=== PATIENT | female | born 1950 ===

== ENCOUNTER 2016-07-21 13:30 | Inpatient (IN) | payer MEDICAID, MEDICARE, OTHER ==
[2016-07-21] MEDS ORDERED: Nitroglycerin 2% 1GM UD TOP STA (14:07)
[2016-07-21] MEDS ORDERED: Nitroglycerin 2% 1GM UD ONE (14:26)
--- NOTE | 2016-07-21 14:56 | CT ---
PROCEDURE: CT HEAD WITHOUT CONTRAST. HISTORY: headache COMPARISON: None available. TECHNIQUE: Axial computed tomography images were obtained through the head/brain without intravenous contrast. Radiation dose: Total exam DLP = 876.44 mGy-cm. FINDINGS: HEMORRHAGE: No intracranial hemorrhage. BRAIN: No intracranial mass. Rounded area of low attenuation in the left frontal white matter which may be artifact, or may represent focal microvascular ischemic change. Possible focal nonspecific gliosis Cannot rule out subacute white matter infarct. No evidence of acute infarct. VENTRICLES: Unremarkable. No hydrocephalus. CALVARIUM: Unremarkable. PARANASAL SINUSES: Unremarkable as visualized. No significant inflammatory changes. MASTOID AIR CELLS: Unremarkable as visualized. No inflammatory changes. OTHER FINDINGS: None. IMPRESSION: No intracranial hemorrhage. Rounded area of low attenuation in the left frontal white matter common nonspecific. See above differential diagnosis. Not concerning for acute infarct or neoplasm. Otherwise unremarkable.
[2016-07-21 15:01] LABS: BASO # 0.1 K/uL (0.0-0.2); BASO % 0.5 % (0.0-2.0); EOS # 0.3 K/uL (0.0-0.7); EOS % 2.1 % (0.0-4.0); HEMATOCRIT 37.5 % (34.0-47.0); LYMPH # 2.1 K/uL (1.0-4.3); LYMPH % 17.2 % (20.0-40.0); MEAN CELL VOLUME 78.6 fl (81.0-99.0); MEAN CORPUSCULAR HEMOGLOBIN 26.2 pg (27.0-31.0); MEAN CORPUSCULAR HGB CONC 33.4 g/dL (33.0-37.0); MEAN PLATELET VOLUME 8.5 fl (7.2-11.7); MONO # 1.4 K/uL (0.0-0.8); MONO % 11.4 % (0.0-10.0); NEUT # 8.2 K/uL (1.8-7.0); NEUT % 68.8 % (50.0-75.0); WHITE BLOOD COUNT 11.9 K/uL (4.8-10.8)
--- NOTE | 2016-07-21 15:14 | RAD ---
HISTORY: pain COMPARISON: No prior. TECHNIQUE: Chest PA and lateral FINDINGS: LUNGS: No infiltrate. Examination limited by failure to include left costophrenic angle on the frontal view. PLEURA: No significant pleural effusion identified. No pneumothorax apparent. CARDIOVASCULAR: Normal. OSSEOUS STRUCTURES: No significant abnormalities. VISUALIZED UPPER ABDOMEN: Normal. OTHER FINDINGS: None. IMPRESSION: Normal limited examination.
[2016-07-21 15:19] LABS: PARTIAL THROMBOPLASTIN TIME 28.7 SECONDS (23.3-32.5)
[2016-07-21 15:21] LABS: ALB/GLOB RATIO 0.9 (1.0-2.1); ALKALINE PHOSPHATASE 108 U/L (38-126); ALT/SGPT 24 U/L (9-52); AST/SGOT 18 U/L (14-36); BILIRUBIN,TOTAL 0.7 mg/dl (0.2-1.3); BLOOD UREA NITROGEN 13 mg/dl (7-17); CALCIUM 9.2 mg/dL (8.4-10.2); CARBON DIOXIDE 26 mmol/L (22-30); CHLORIDE 99 mmol/L (98-107); GFR AFRICAN-AMERICAN > 60; GLUCOSE,RANDOM 181 mg/dL (65-105); LIPASE 40 U/L (23-300); MAGNESIUM 1.8 MG/DL (1.6-2.3); POTASSIUM 3.9 MMOL/L (3.6-5.0); SODIUM 135 mmol/l (132-148); TOTAL PROTEIN 8.8 G/DL (6.3-8.2)
--- NOTE | 2016-07-21 15:46 | ED PDOC ---
HPI: Chest Pain Time Seen by Provider: 07/21/16 13:58 Chief Complaint (Nursing): Chest Pain Chief Complaint (Provider): chest pain and headache History Per: Patient, Family (daughter at bedside ) Additional Complaint(s): patient with DM, CVA presents for evaluation of 3 days of chest pain described as sharp pulsating pain radiating to the left upper arm, left and mid chest no alleviating or exacerbating factors. further notes headaches, pulsating throbbing in the left frontal region. (-) dizziness, change in vision, motor weakness, trouble talking or swallowing. was seen 2 weeks ago in another hospital for strep- treated with injection- no fevers, no throat pain, no rash daughter notes not compliant with medications in [place], however she was restarted on metformin during that hospital visit and has been taking it. hx of stroke,mild left weakness about 5 years all resolved- no deficits NIHSS Stroke Scale - Date/Time Evaluation Performed Date Performed: 07/21/16 Time Performed: 13:58 When Was NIHSS Performed: Baseline - How Severe is the Stroke Level of Consciousness: 0=Alert LOC to Questions: 0=Both comments correct LOC to commands: 0=Obeys both correctly Best Gaze: 0=Normal Visual: 0=No visual loss Facial: 0=Normal Motor Arm - Left: 0=No drift Motor Arm - Right: 0=No drift Motor Leg - Left: 0=No drift Motor Leg - Right: 0=No drift Limb Ataxia: 0=Absent Sensory: 0=Normal Best Language: 0=No aphasia Extinction & Inattention (Neglect): 0=Normal, no object Past Medical History Reviewed: Historical Data, Nursing Documentation, Vital Signs Vital Signs: Last Vital Signs Temp 98.9 F 07/22/16 09:19 Pulse 83 07/22/16 09:19 Resp 20 07/22/16 09:19 BP 148/70 07/22/16 09:19 Pulse Ox 95 07/22/16 09:19 - Medical History PMH: CVA (about 5 years ago, left side weakness- resolved, no deficits ), Diabetes (non insulin see HPI) Other PMH: cardiomegaly - Family History Family History: States: [place] (father ) - Living Arrangements Living Arrangements: With Family (visiting from [place]) - Social History Current smoker - smoking cessation education provided: No Alcohol: Occasional Drugs: Denies - Allergies Allergies/Adverse Reactions: Allergies Allergy/AdvReac Type Severity Reaction Status Date / Time No Known Allergies Allergy Verified 07/21/16 13:53 NOHEMI Risk Score for UA/NSTEMI - NOHEMI Risk Score Age > 64: YES 3 or more CAD Risk Factors: YES Known CAD (Stenosis greater than 50%): NO Aspirin use in past 7 days: NO Severe Angina: NO EKG ST changes greater than 0.5mm: NO Positive Cardiac Marker: NO NOHEMI Score: 2 Risk %: 8% Wells Criteria for PE - Wells Criteria for Pulmonary Embolism Clinical Signs and Symptoms of DVT: No P.E is #1 Diagnosis, or Equally Likely: No Heart Rate >100: No Immobilization at least 3 days;Surgery previous 4 weeks: No Previous, objectively diagnosed PE or DVT: No Hemoptysis: No Malignancy w/treatment within 6 months, or palliative: No Total Score: 0 Review of Systems ROS Statement: Except As Marked, All Systems Reviewed And Found Negative Constitutional: Negative for: Fever Cardiovascular: Positive for: Chest Pain. Negative for: Palpitations Respiratory: Positive for: Shortness of Breath. Negative for: Cough Gastrointestinal: Negative for: Nausea, Vomiting, Abdominal Pain Musculoskeletal: Negative for: Neck Pain Skin: Negative for: Rash Neurological: Positive for: Headache. Negative for: Seizures, Dizziness Physical Exam - Reviewed Nursing Documentation Reviewed: Yes Vital Signs Reviewed: Yes - Physical Exam Appears: Positive for: Well (obese ), No Acute Distress Head Exam: Positive for: ATRAUMATIC (non tender temporal areas with no swelling or pulsating blood vessles ), NORMAL INSPECTION Skin: Positive for: Normal Color, Warm, Dry Eye Exam: Positive for: Normal appearance ENT: Positive for: Normal ENT Inspection Neck: Positive for: Normal, Painless ROM Cardiovascular/Chest: Positive for: Regular Rate, Rhythm Respiratory: Positive for: Normal Breath Sounds Pulses-Dorsalis Pedis (L): 2+ Pulses-Dorsalis Pedis (R): 2+ Pulses-Radial (L): 2+ Pulses-Radial (R): 2+ Gastrointestinal/Abdominal: Positive for: Normal Exam, Soft. Negative for: Tenderness Back: Positive for: Normal Inspection Extremity: Positive for: Normal ROM. Negative for: Tenderness Lymphatic: Positive for: Normal Exam Neurologic/Psych: Positive for: Alert, tutor coordinator II-XII (normal intact ), Oriented, Cerebellar Tests (intact ), Gait (normal ). Negative for: Motor/Sensory Deficits, Aphasia, Facial Droop - Laboratory Results Result Diagrams: 07/22/16 06:57 07/22/16 06:57 - ECG ECG Rhythm: Positive for: Normal QRS, Normal ST Segment, Sinus Rhythm (94). Negative for: ST/T Changes O2 Sat by Pulse Oximetry: 100 Pulse Ox Interpretation: Normal - Radiology X-Ray: Read By Radiologist X-Ray Interpretation: No Acute Disease (limited left costophrenic angle) Medical Decision Making Medical Decision Makin65 y/o female uncontrolled DM, hx of CVA with headache, chest pain, rule out ACS - ct head - labs - EKG - aspirin, nitro CT head FINDINGS: HEMORRHAGE:No intracranial hemorrhage. BRAIN:No intracranial mass. Rounded area of low attenuation in the left frontal white matter which may be artifact, or may represent focal microvascular ischemic change. Possible focal nonspecific gliosis Cannot rule out subacute white matter infarct. No evidence of acute infarct. VENTRICLES:Unremarkable. No hydrocephalus. CALVARIUM:Unremarkable. PARANASAL SINUSES:Unremarkable as visualized. No significant inflammatory changes. MASTOID AIR CELLS:Unremarkable as visualized. No inflammatory changes. OTHER FINDINGS:None. IMPRESSION: No intracranial hemorrhage. Rounded area of low attenuation in the left frontal white matter common nonspecific. See above differential diagnosis. Not concerning for acute infarct or neoplasm. Otherwise unremarkable. CT as above. MRI ordered for further evaluation. daughter notes left sided issues during her CVA 5 years ago. today left sided headache. labs reviewed (+) d-dimer CTA ordered. trop and BNP negative glucose 181 ESR pending labs with no acute finding after nitro and ASA patient states no further chest pain CTA pending. [facility] placed to [facility] for further inpatient evaluation. requests: Dr. Quesada for cardio and Dr. Candelaria for neuro repeat examination reveals patient appears well. NAD, neuro exam with no focal weakness or deficits. discussed case with Dr. Quesada and Dr. Candelaria, agree with treatment plan. will follow. CTA IMPRESSION: Bilateral small pulmonary emboli are noted. The examination is technically limited. No pulmonary infiltrate/ pleural effusion. Cardiomegaly with small pericardial effusion. No evidence of right ventricular strain. Hepatosplenomegaly. Incidental right adrenal myelo lipoma. Case discussed with Dr. Garcia and Dr. Quesada made aware of finding of PE. Lovenox ordered. MRI:IMPRESSION: No evidence of acute infarct or acute pathology in the brain. Gqqr-dl-wfeinaef atrophy and mild chronic microvascular white matter ischemic disease. Widening of the sella turcica and empty sella noted. Mild sinuses mucosal thickening. Patient is stable, no headache and no chest pain at this time. heart: rrr, no mgr. lungs CTA bilateral, vitals reviewed SaO2 98%, no focal weakness or deficits. discussed with patient, daughter, son all finding in malay via video hat liner- louis [phone] all questions answered. Disposition - Clinical Impression Clinical Impression: Chest pain, Headache, Pulmonary emboli, Pericardial effusion - Patient ED Disposition Is Patient to be Admitted: Yes Counseled Patient/Family Regarding: Studies Performed, Diagnosis - Disposition Disposition Time: 18:13 Condition: STABLE - Pt Status Changed To: Hospital Disposition Of: Inpatient - Admit Certification Admit to Inpatient:: After my assessment, the patient will require hospitalization for at least two midnights. This is because of the severity of symptoms shown, intensity of services needed, and/or the medical risk in this patient being treated as an outpatient. - POA Present On Arrival: Poor Glycemic Control, Deep Vein Thrombosis / PE
[2016-07-21] MEDS ORDERED: Iodixanol 320 MG/ML 100 ML BOTTLE IV ONE (16:35)
[2016-07-21] MEDS ORDERED: Sodium Chloride 0.9% 50 ML IV ONE (16:35)
[2016-07-21 17:14] LABS: RBC URINE 2 /hpf (0-3); URINE BACTERIA MANY (<OCC); URINE BILIRUBIN NEGATIVE (NEGATIVE); URINE BLOOD NEGATIVE (NEGATIVE); URINE COLOR YELLOW (YELLOW); URINE GLUCOSE (UA) NEG (Normal); URINE KETONE NEGATIVE (NEGATIVE); URINE LEUKOCYTE ESTERASE NEG Leu/uL (Negative); URINE PROTEIN 30 mg/dL (NEGATIVE); URINE UROBILINOGEN 0.2-1.0 mg/dL (0.2-1.0); WBC URINE 1 /hpf (0-5)
--- NOTE | 2016-07-21 17:59 | CT ---
PROCEDURE: CT Chest with contrast (Pulmonary Angiogram) HISTORY: pain COMPARISON: None available. TECHNIQUE: Axial computed tomography images were obtained of the chest in the pulmonary arterial phase of enhancement. Coronal and sagittal reformatted images were created and reviewed. Intravenous contrast dose: 100 mL Visipaque 3 Radiation dose: Total exam DLP = 403.86 mGy-cm. FINDINGS: PULMONARY ARTERIES: Unremarkable. No pulmonary embolism. Evaluation for pulmonary embolism is somewhat limited due to technical limitation of the timing relative to contrast injection and due to patient body habitus. There is no large central pulmonary embolus identified. Is a small filling defect identified within a right upper lobe segmental pulmonary artery branch. There is a filling defect seen within a lingular segmental pulmonary artery branch. These are consistent with pulmonary emboli. AORTA: No acute findings. No thoracic aortic aneurysm. LUNGS: Unremarkable. No nodule, mass or pulmonary consolidation. PLEURAL SPACES: Unremarkable. No effusion or pneuomothorax. HEART: The heart is enlarged. There is a small pericardial effusion present. No evidence of right ventricular strain. Incidental note is made of an aberrant right subclavian artery, a developmental variant. LYMPH NODES: No lymphadenopathy. BONES, CHEST WALL: Unremarkable. No fracture or destructive lesion OTHER FINDINGS: Splenomegaly. Probable hepatomegaly although the liver is only partially included in this examination. Incidentally noted 2.6 cm right adrenal myelolipoma. IMPRESSION: Bilateral small pulmonary emboli are noted. The examination is technically limited. No pulmonary infiltrate/ pleural effusion. Cardiomegaly with small pericardial effusion. No evidence of right ventricular strain. Hepatosplenomegaly. Incidental right adrenal myelo lipoma. These findings were discussed by telephone with WILIAN Palacios at 5:57 p.m. on 07/21/2016.
[2016-07-21] MEDS ORDERED: Enoxaparin 80 mg Syringe SC STA (18:08)
--- NOTE | 2016-07-21 18:27 | MRI ---
PROCEDURE: MRI BRAIN WITHOUT CONTRAST HISTORY: headache COMPARISON: None. TECHNIQUE: Multiplanar, multisequence MR images of the brain were obtained without intravenous contrast enhancement. FINDINGS: HEMORRHAGE: None DWI: No evidence of an acute or early subacute infarction. BRAIN PARENCHYMA: No mass effect or edema. Nyrt-cp-ovskmavp atrophy noted. There are scattered foci of hyperintense T2 and FLAIR signal seen in the white matter suggestive but nonspecific for chronic microvascular ischemic disease. VENTRICLES: Unremarkable. No hydrocephalus. CRANIUM: Unremarkable. ORBITS: Grossly unremarkable. PARANASAL SINUSES/MASTOIDS: Mild sinuses mucosal thickening seen. VASCULAR SYSTEM: Skull base flow voids intact. OTHER FINDINGS: None. IMPRESSION: No evidence of acute infarct or acute pathology in the brain. Rnpb-wc-atyxixyw atrophy and mild chronic microvascular white matter ischemic disease. Widening of the sella turcica and empty sella noted. Mild sinuses mucosal thickening.
[2016-07-22] MEDS ORDERED: Pneumococcal 23-Valent Vaccine IM ONE (06:00)
[2016-07-22] MEDS ORDERED: Influenza Vaccine(5yr & older) 0.5 ML/45 MCG IM ONE (06:00)
[2016-07-22 07:22] LABS: HEMATOCRIT 36.6 % (34.0-47.0); MEAN CELL VOLUME 78.6 fl (81.0-99.0); MEAN CORPUSCULAR HEMOGLOBIN 26.6 pg (27.0-31.0); MEAN CORPUSCULAR HGB CONC 33.8 g/dL (33.0-37.0); RED CELL DISTRIBUTION WIDTH 14.2 % (11.5-14.5); WHITE BLOOD COUNT 12.4 K/uL (4.8-10.8)
[2016-07-22 07:43] LABS: BLOOD UREA NITROGEN 13 mg/dl (7-17); CALCIUM 8.9 mg/dL (8.4-10.2); CARBON DIOXIDE 27 mmol/L (22-30); CHLORIDE 100 mmol/L (98-107); CHOLESTEROL 156 mg/dL (0-199); GFR AFRICAN-AMERICAN > 60; GLUCOSE,RANDOM 175 mg/dL (65-105); SODIUM 135 mmol/l (132-148)
--- NOTE | 2016-07-22 08:06 | CP.PCM.CON ---
History of Present Illness - History of Present Illness History of Present Illness: atient with DM, CVA presents for evaluation of 3 days of chest pain described as sharp pulsating pain radiating to the left upper arm, left and mid chest no alleviating or exacerbating factors. further notes headaches, pulsating throbbing in the left frontal region. (-) dizziness, change in vision, motor weakness, trouble talking or swallowing. was seen 2 weeks ago in another hospital for strep- treated with injection- no fevers, no throat pain, no rash daughter notes not compliant with medications in [place], however she was restarted on metformin during that hospital visit and has been taking it. hx of stroke,mild left weakness about 5 years all resolved- no deficits Troponin: neg x 3 Pt denies any pains at present EKG: NSR Echo: good LV function CT Chest: Bilateral small pulmonary emboli Past Patient History - Past Medical History & Family History Past Medical History?: Yes - Past Social History Smoking Status: Never Smoked - CARDIAC Hx Cardiac Disorders: No - PULMONARY Hx Respiratory Disorders: Yes Hx Asthma: Yes - NEUROLOGICAL Hx Neurological Disorder: Yes HX Cerebrovascular Accident: Yes (CVA occurred 5 yrs ago; no deficits noted presently) - HEENT Hx HEENT Problems: No - RENAL Hx Chronic Kidney Disease: No - ENDOCRINE/METABOLIC Hx Endocrine Disorders: Yes Hx Diabetes Mellitus Type 2: Yes - HEMATOLOGICAL/ONCOLOGICAL Hx Blood Disorders: No - INTEGUMENTARY Hx Dermatological Problems: No - MUSCULOSKELETAL/RHEUMATOLOGICAL Hx Musculoskeletal Disorders: No Hx Falls: No - GASTROINTESTINAL Hx Gastrointestinal Disorders: Yes Hx Gall Bladder Disease: Yes (gall bladder sx - removed 2013) - GENITOURINARY/GYNECOLOGICAL Hx Genitourinary Disorders: No - PSYCHIATRIC Hx Psychophysiologic Disorder: No Hx Substance Use: No - SURGICAL HISTORY Hx Surgeries: Yes Hx Section: Yes (x1) Hx Cholecystectomy: Yes (3 years ago) Other/Comment: Gall bladder sx in 2013 - ANESTHESIA Hx Anesthesia: Yes Hx Anesthesia Reactions: No Meds Allergies/Adverse Reactions: Allergies Allergy/AdvReac Type Severity Reaction Status Date / Time No Known Allergies Allergy Verified 07/21/16 13:53 - Medications Medications: Current Medications Acetaminophen (Tylenol 325mg Tab) 650 mg PO Q6 PRN PRN Reason: Pain, moderate (4-7) Aspirin (Ecotrin) 81 mg PO DAILY [facility] Enoxaparin Sodium (Lovenox) 40 mg SC DAILY [facility] PRN Reason: Protocol Insulin Human Regular (Humulin R) 0 units SC ACHS [facility] PRN Reason: Protocol Physical Exam - Respiratory Exam Respiratory Exam: NORMAL BREATHING PATTERN - Cardiovascular Exam Cardiovascular Exam: REGULAR RHYTHM Results - Vital Signs Recent Vital Signs: Last Vital Signs Temp 99.3 F 07/22/16 05:18 Pulse 90 07/22/16 05:18 Resp 18 07/22/16 05:18 BP 147/69 07/22/16 05:18 Pulse Ox 96 07/22/16 05:18 - Labs Result Diagrams: 07/22/16 06:57 07/22/16 06:57 Labs: Laboratory Results - last 24 hr 07/21/16 07/22/16 07/22/16 23:18 05:35 06:54 WBC RBC Hgb Hct MCV MCH MCHC RDW Plt Count POC Glucose (mg/dL) 162 H Troponin I 0.0150 0.0170 07/22/16 06:57 WBC 12.4 H RBC 4.65 Hgb 12.4 Hct 36.6 MCV 78.6 L MCH 26.6 L MCHC 33.8 RDW 14.2 Plt Count 346 POC Glucose (mg/dL) Troponin I Assessment & Plan (1) Chest pain Assessment and Plan: Most likely 2* to Pulmonay Emboli Status: Acute (2) Pulmonary emboli Status: Acute
[2016-07-22 08:14] LABS: THYROID STIMULATING HORMONE 3.63 mIU/ML (0.46-4.68)
[2016-07-22] MEDS: Insulin Regular 100 units/ml SC SCH ×4 (09:21→22:56)
[2016-07-22] MEDS: Enoxaparin 40 mg Syringe SC SCH (09:23)
--- NOTE | 2016-07-22 10:04 | HP ---
CHIEF COMPLAINT: Chest pain and headache. HISTORY OF PRESENT ILLNESS: This is a 65-year-old female, known case of diabetes, history of CVA in the past with almost total recovery who was having chest pain, so the patient was brought to the [facility] Room and during workup, the patient was found to have pulmonary embolism, so patient was admitt ed for further management. REVIEW OF SYSTEMS: Positive for chest pain. Review of systems otherwise is negative for headache, d izziness, syncope, loss of consciousness, chest pain other than the one described in history of prese nt illness, shortness of breath, nausea, vomiting, diarrhea, constipation, any new joint or extremity pain. Review of systems of all other organ systems is unremarkable. PAST MEDICAL HISTORY: Significant for diabetes and history of stroke in the past. PAST SURGICAL HISTORY: Unremarkable. PERSONAL HISTORY: The patient is currently a nonsmoker, nondrinker, no substance abuse. MEDICATIONS: As per reconciliation sheet, which is reviewed in order. ALLERGIES: The patient is not allergic to any medication. FAMILY HISTORY: Noncontributory. PHYSICAL EXAMINATION: GENERAL: Well-built, well-nourished, overweight female in no acute distress. VITAL SIGNS: Temperature 99.3, pulse 90, respirations 18, blood pressure 147/69. HEENT: Pupils reacting to light. No nystagmus. Normocephalic, atraumatic skull. NECK: No JVD, no thyromegaly, no lymphadenopathy. HEART: S1, S2 normal, regular. No significant murmur, gallop or rub is heard. LUNGS: Shows good bilateral air exchange. No rales or rhonchi. ABDOMEN: Soft, nontender, no organomegaly, no fluid. Bowel sounds are plus. EXTERNAL GENITALIA AND RECTAL: Deferred on this patient. EXTREMITIES: No edema, no calf swelling, no tenderness, no acute ischemia. CENTRAL NERVOUS SYSTEM: Essentially unchanged and there is no sign of any acute gross focal motor or sensory neurological deficit. DIAGNOSTIC DATA: Available diagnostic data reviewed. Telemetry monitoring does not reveal significa nt arrhythmia. WBC 12.1, hemoglobin 12.1, hematocrit 36.6, platelets 246. Accu-Cheks are 162, hemog lobin A1c is 10.____. Troponin: 2 sets are negative. Urinalysis is clear. Chest x-ray is clear. CAT scan head shows minimal abnormality. MRI of the brain also is consistent with microvascular dise ase. CAT scan of the chest shows bilateral pulmonary embolism. ADMITTING IMPRESSION: Bilateral pulmonary embolism, uncontrolled diabetes with hyperglycemia type 2, ____ by history, obesity. PLAN: As ordered. Case and plan discussed with patient. Rafael Garcia MD cc: [id number] TT: 07/22/2016 10:02:55 jn
--- NOTE | 2016-07-22 16:22 | US ---
PROCEDURE: Duplex ultrasound of the carotid and vertebral arteries. HISTORY: STENOSIS COMPARISON: None available. TECHNIQUE: Grayscale and duplex Doppler evaluation of the cervical carotid and vertebral arteries were performed. The common carotid, carotid bifurcations and cervical ICA and proximal ECA were evaluated. The vertebral arteries were evaluated for gross patency and direction. FINDINGS: RIGHT CAROTID ARTERIES: Common Carotid Artery: Minimal intimal thickening. Maximal flow velocity of 81 cm/s. Carotid Bifurcation: Unremarkable Internal Carotid Artery:Minor plaque Maximal flow velocity of 104 cm/s. External Carotid Artery (proximal branches): Normal. Maximal flow velocity of 112 cm/s. ICA/CCA Ratio: Within normal limits LEFT CAROTID ARTERIES: Common Carotid Artery: Minor intimal thickening. Maximal flow velocity of 71 cm/s. Carotid Bifurcation: Unremarkable Internal Carotid Artery:Minor plaque Maximal flow velocity of 64 cm/s. External Carotid Artery (proximal branches): Normal. Maximal flow velocity of 70 cm/s. ICA/CCA Ratio: Within normal limits VERTEBRAL ARTERIES: Right Vertebral Artery: Patent. Antegrade flow. Left Vertebral Artery: Patent. Antegrade flow. OTHER FINDINGS: None. IMPRESSION: No peak systolic velocity elevation to suggest carotid bifurcation stenosis.
[2016-07-22 17:22] LABS: FOLATE 16.2 ng/mL
--- NOTE | 2016-07-22 21:03 | CON ---
DATE: 07/22/2016 ATTENDING PHYSICIAN: Rafael Garcia MD LOCATION: The patient's room 406, bed 1. REASON FOR THE CONSULTATION: Headache. CHIEF COMPLAINT: The patient was brought into [facility] with a history of pulsating and radicular pain to her left arm and also she has a left frontal headache. From a neurological point of view, I was called in to evaluate her for further management. HISTORY OF PRESENT ILLNESS: The patient is a 65-year-old moderately obese, right-handed female presenting with left frontal pain associating with some left arm pain also. This pain is not associating with nausea or vomiting. This is 24-hours after her headache is not existing. No dizziness, no visual or bulbar dysfunction. Right arm pain is also somewhat decreased at present. No similar episodes happened in the past. PAST MEDICAL HISTORY: Had a CVA 5 years ago with left-sided weakness, resolved without any deficit. History of diabetes mellitus. History of cardiomegaly. PERSONAL HISTORY: Denies smoking and alcohol. ALLERGIC REACTION: No known allergies. REVIEW OF SYSTEMS: As per H and P. MEDICATIONS: Ecotrin, insulin, Lovenox and Tylenol for her headache. PHYSICAL EXAMINATION: VITAL SIGNS: Blood pressure 165/88, mean arterial pressure 113, respiratory rate 16, temperature afebrile. NECK: Supple. No carotid bruit. HEART: Sounds are regular. CHEST: Fair air entry. EXTREMITIES: No edema in legs. NEUROLOGIC EXAMINATION: MENTAL STATUS EXAMINATION: The patient is awake, alert, oriented to person, place, and time. The patient is communicable only in Faroese. She follows 2-3 step complex commands. No right and left confusion. CRANIAL NERVE EXAMINATION: Visual march intact, pupil reactive to light. Extraocular movements are normal. No nystagmus, no facial sensory deficit, no facial asymmetry. Hearing is normal. Tongue is midline. Good gag. Examination of the temporal area: No Tinel's sign positive on tapping the temporal artery. No beaded appearance of the temporal artery. No jaw tenderness. MOTOR: On outstretched hand with eyes closed, no drift noted. Power is symmetric on either side. DEEP TENDON REFLEXES: Biceps, brachioradialis, triceps are absent, both knees are absent, both ankles are absent, both ankles are absent, left plantars are upgoing and right plantars are downgoing. SENSORY: Distal sensory motor neuropathy. COORDINATION: Nvwemw-jmgc-bdmluf test is intact. GAIT: Is deferred at this time. CONCLUSION: Upon reviewing her history and neurological examination, the patient is presenting with a pulsatile headache over her left frontal region, which was resolved at present. The current examination does not show any long tract sign except the diabetic retinal neuropathy. Considering her risk of stroke and possible pulmonary embolism, the patient needs to be worked up for hypercoagulable stage. BLOOD WORKUP: WBC 12.4, hemoglobin 12.4, hematocrit 36.6, platelet 346. ESR 38. GFR more than 60. Sodium 135, potassium 4.0, chloride 100, bicarbonate 27. CRP of 15. Hemoglobin A1c 10.3. BUN 13, creatinine 0.4. TSH 3.6. Vitamin B12 117. Cholesterol 123, HDL 86. Urinalysis with many bacteria. RPR nonreactive. MRI of the brain showed periventricular ischemic changes, which are consistent with small vessel disease, some showed black holes consistent with a chronic vascular infarct. Carotid Doppler, no significant stenosis. RECOMMENDATIONS: 1. B12 supplement. 2. Continue aspirin for stroke prophylaxis. 3. Hypercoagulable stage. Blood workup as recommended in the order. Continue anticoagulation for her PE. The patient will be followed closely while she is in the hospital. Jose Carlos Candelaria MD cc: [id number] TT: 07/22/2016 21:02:05 Confirmation # [id number] Dictation # [id number] damon REYEZ
[2016-07-23] MEDS: Insulin Regular 100 units/ml SC SCH ×4 (06:50→22:42)
--- NOTE | 2016-07-23 07:30 | CARD ---
APPROVED REPORT EXAM: Two-dimensional and M-mode echocardiogram with Doppler and color Doppler. Other Information Quality : GoodRhythm : NSR INDICATION Chest Pain 2D DIMENSIONS IVSd1.37 (0.7-1.1cm)LVDd4.40 (3.9-5.9cm) LVOT Diameter1.93 (1.8-2.4cm)PWd1.30 (0.7-1.1cm) IVSs2.02 (0.8-1.2cm)LVDs2.75 (2.5-4.0cm) FS (%) 37.5 %PWs1.48 (0.8-1.2cm) M-Mode DIMENSIONS Left Atrium (MM)2.94 (2.5-4.0cm)IVSd1.26 (0.7-1.1cm) Aortic Root3.18 (2.2-3.7cm)LVDd5.46 (4.0-5.6cm) Aortic Cusp Exc.1.92 (1.5-2.0cm)PWd1.36 (0.7-1.1cm) IVSs2.08 cmFS (%) 44 % LVDs3.04 (2.0-3.8cm)PWs1.79 cm Mitral Valve MV E Kzenmlzk85.3cm/sMV DECEL [id number] A Lrslydae754.2cm/s MV TVE42tbF/A ratio0.7MVA (PHT)5.02cm2 TDI Medial E' Peak V6.36cm/sE/Lateral E'0.0E/Medial E'15.5 LEFT VENTRICLE The left ventricle is normal size. There is moderate concentric left ventricular hypertrophy. The left ventricular function is normal. The left ventricular ejection fraction is 60-65% There is normal LV segmental wall motion. Transmitral Doppler flow pattern is Grade I-abnormal relaxation pattern. No left ventricle thrombus noted on this study. There is no ventricular septal defect visualized. There is no left ventricular aneurysm. There is no mass noted in the left ventricle. RIGHT VENTRICLE The right ventricle is normal size. There is normal right ventricular wall thickness. The right ventricular systolic function is normal. ATRIA The left atrium size is normal. The right atrium size is normal. The interatrial septum is intact with no evidence for an atrial septal defect. AORTIC VALVE The aortic valve is mildly to moderately sclerotic. No aortic regurgitation is present. There is no aortic valvular stenosis. There is no aortic valvular vegetation. There is no aortic valvular vegetation. There is no aortic valvular vegetation. There is no aortic valvular vegetation. MITRAL VALVE The mitral valve is normal in structure and function. Mitral annular calcification is moderate to severe. There is no evidence of mitral valve prolapse. There is no mitral valve stenosis. There is no mitral valve regurgitation noted. TRICUSPID VALVE The tricuspid valve is normal in structure and function. There is no tricuspid valve regurgitation noted. There is no tricuspid valve prolapse or vegetation. There is no tricuspid valve stenosis. PULMONIC VALVE The pulmonary valve is normal in structure and function. There is no pulmonic valvular regurgitation. There is no pulmonic valvular stenosis. GREAT VESSELS The aortic root is normal in size. The ascending aorta is normal in size. The IVC is normal in size and collapses >50% with inspiration. PERICARDIAL EFFUSION The pericardium appears normal. There is no pleural effusion. <Conclusion> Normal LV Systolic Function Concentric LVH Aortic Valve Sclerosis Mitral Annular Calcification
[2016-07-23 08:26] LABS: HOMOCYSTEINE 10.2 umol/L (<10.4)
[2016-07-23] MEDS: Enoxaparin 40 mg Syringe SC SCH (09:17)
--- NOTE | 2016-07-23 09:35 | PN ---
DATE: 07/23/2016 The patient is seen and examined. Interim events noted. Consults noted and appreciated. Cardiology consult, neurology consult, and intervention noted and appreciated. The patient remains in progress [facility] care unit on telemetry monitoring. The patient feels better. No chest pain, no shortness of hubert ath. PHYSICAL EXAMINATION: GENERAL: The patient is in no acute distress. VITAL SIGNS: Stable. HEART: S1, S2 normal, regular. LUNGS: Good bilateral air entry. ABDOMEN: Soft, nontender. EXTREMITIES: No edema, no calf swelling, no tenderness, no acute ischemia. CENTRAL NERVOUS SYSTEM: Essentially unchanged. DIAGNOSTIC DATA: Available diagnostic data reviewed. Telemetry monitoring does not reveal significa nt arrhythmias. Overall, the patient's general condition is slowly improving. PLAN: As ordered. Rafael Garcia MD cc: [id number] TT: 07/23/2016 09:34:58 Confirmation # [id number] Dictation # [id number] arcenio
[2016-07-23 10:20] LABS: HEMATOCRIT 36.2 % (34.0-47.0); MEAN CORPUSCULAR HEMOGLOBIN 26.5 pg (27.0-31.0); MEAN CORPUSCULAR HGB CONC 33.5 g/dL (33.0-37.0); RED CELL DISTRIBUTION WIDTH 13.8 % (11.5-14.5); WHITE BLOOD COUNT 10.9 K/uL (4.8-10.8)
[2016-07-23 11:14] LABS: ALKALINE PHOSPHATASE 100 U/L (38-126); ALT/SGPT 23 U/L (9-52); AST/SGOT 18 U/L (14-36); BILIRUBIN,TOTAL 0.6 mg/dl (0.2-1.3); BLOOD UREA NITROGEN 12 mg/dl (7-17); CALCIUM 9.1 mg/dL (8.4-10.2); CARBON DIOXIDE 26 mmol/L (22-30); CHLORIDE 100 mmol/L (98-107); GFR AFRICAN-AMERICAN > 60; GLUCOSE,RANDOM 206 mg/dL (65-105); POTASSIUM 3.6 MMOL/L (3.6-5.0); SODIUM 136 mmol/l (132-148)
[2016-07-23 11:16] LABS: ALB/GLOB RATIO 0.9 (1.0-2.1)
--- NOTE | 2016-07-23 19:07 | PN ---
DATE: 07/23/2016 NEUROLOGICAL PROBLEM: Headache with no lateralizing sign. VITAL SIGNS: Blood pressure 173/90, mean arterial pressure of 118, respiratory rate 16, temperature 98.6 with a pulse rate of 101. The patient is seen with family members. She is awake, alert, oriented to person, place, and time. Headache is not present since my exam yesterday. The patient is asymptomatic at present. From a neurological point of view examination is unchanged compared with my previous exam. The patie nt is on Lovenox for PE. The patient was given B12 supplements also. The patient should be on antip latelets'. Diabetic control should be addressed and then discussed with the patient and the family melida vyas. Jose Carlos Candelaria MD cc: [id number] TT: 07/23/2016 19:06:09 Confirmation # [id number] Dictation # [id number] damon
[2016-07-24] MEDS: Insulin Regular 100 units/ml SC SCH ×4 (06:45→22:16)
[2016-07-24 07:26] LABS: HEMATOCRIT 37.8 % (34.0-47.0); MEAN CELL VOLUME 79.6 fl (81.0-99.0); MEAN CORPUSCULAR HEMOGLOBIN 25.9 pg (27.0-31.0); MEAN CORPUSCULAR HGB CONC 32.5 g/dL (33.0-37.0); RED CELL DISTRIBUTION WIDTH 13.8 % (11.5-14.5); WHITE BLOOD COUNT 12.2 K/uL (4.8-10.8)
[2016-07-24 07:46] LABS: ALB/GLOB RATIO 0.8 (1.0-2.1); ALKALINE PHOSPHATASE 118 U/L (38-126); ALT/SGPT 23 U/L (9-52); AST/SGOT 20 U/L (14-36); BILIRUBIN,TOTAL 0.9 mg/dl (0.2-1.3); BLOOD UREA NITROGEN 12 mg/dl (7-17); CALCIUM 9.2 mg/dL (8.4-10.2); CARBON DIOXIDE 26 mmol/L (22-30); CHLORIDE 99 mmol/L (98-107); GFR AFRICAN-AMERICAN > 60; GLUCOSE,RANDOM 169 mg/dL (65-105); SODIUM 141 mmol/l (132-148); TOTAL PROTEIN 8.6 G/DL (6.3-8.2)
[2016-07-24] MEDS: Enoxaparin 40 mg Syringe SC SCH (09:00)
--- NOTE | 2016-07-24 10:14 | CARD ---
APPROVED REPORT EKG Measurement Heart [id number] LA [id number] <Conclusion> Normal sinus rhythm Possible Left atrial enlargement Borderline ECG
--- NOTE | 2016-07-24 10:37 | PN ---
DATE: 07/24/2016 The patient seen and examined. Interim events noted. Consults noted, appreciated. The patient carmen ins in progressive care unit on telemetry monitoring. The patient feels okay. No chest pain or shor tness of breath. PHYSICAL EXAMINATION: GENERAL: The patient is in no acute distress. VITAL SIGNS: Stable. HEART: S1, S2 normal, regular. LUNGS: Good bilateral air exchange. ABDOMEN: Soft, nontender. EXTREMITIES: No edema, no calf swelling, no tenderness, no acute ischemia. CENTRAL NERVOUS SYSTEM: Essentially unchanged. DIAGNOSTIC DATA: Available reviewed. Telemetry monitoring does not reveal significant arrhythmia. Neurology consult noted and appreciated. Overall, patient's general medical condition is stable. PLAN: As ordered. Rafael Garcia MD cc: [id number] TT: 07/24/2016 10:36:09 Confirmation # [id number] Dictation # [id number] en
[2016-07-24] MEDS ORDERED: Enoxaparin 40 mg Syringe SC ONE (12:00)
[2016-07-24] MEDS: Enoxaparin 80 mg Syringe SC SCH (21:19)
--- NOTE | 2016-07-25 01:20 | CP.PCM.CON ---
History of Present Illness - History of Present Illness History of Present Illness: 65 year old female with a history of CVA, DM, admitted with chest pain , found to have PE. The patient reports to progressive chest pain which prompted her to come to the ER. A CT angio of the chest revealed bilateral pulmonary emboli The patient denies prolonged immobility and trauma to her extremities. Past medical history: DM. CVA Past surgical history: None Family history: Denies hematologic and oncologic problems Social history: Denies tobacco, alcohol, and illicit drug use. Allergies: NKA Review of systems: All remaining review of systems including HEENT, cardiovascular, respiratory, gastrointestinal, genitourinary, musculoskeletal, dermatologic, neurologic, and psychiatric are negative unless mentioned in the HPI. Past Patient History - Past Medical History & Family History Past Medical History?: Yes - Past Social History Alcohol: Occasional Drugs: Denies - CARDIAC Hx Cardiac Disorders: No - PULMONARY Hx Respiratory Disorders: Yes Hx Asthma: Yes - NEUROLOGICAL Hx Neurological Disorder: Yes HX Cerebrovascular Accident: Yes (CVA occurred 5 yrs ago; no deficits noted presently) - HEENT Hx HEENT Problems: No - RENAL Hx Chronic Kidney Disease: No - ENDOCRINE/METABOLIC Hx Endocrine Disorders: Yes Hx Diabetes Mellitus Type 2: Yes - HEMATOLOGICAL/ONCOLOGICAL Hx Blood Disorders: No - INTEGUMENTARY Hx Dermatological Problems: No - MUSCULOSKELETAL/RHEUMATOLOGICAL Hx Musculoskeletal Disorders: No Hx Falls: No - GASTROINTESTINAL Hx Gastrointestinal Disorders: Yes Hx Gall Bladder Disease: Yes (gall bladder sx - removed 2013) - GENITOURINARY/GYNECOLOGICAL Hx Genitourinary Disorders: No - PSYCHIATRIC Hx Psychophysiologic Disorder: No Hx Substance Use: No - SURGICAL HISTORY Hx Surgeries: Yes Hx Section: Yes (x1) Hx Cholecystectomy: Yes (3 years ago) Other/Comment: Gall bladder sx in 2013 - ANESTHESIA Hx Anesthesia: Yes Hx Anesthesia Reactions: No Meds Allergies/Adverse Reactions: Allergies Allergy/AdvReac Type Severity Reaction Status Date / Time No Known Allergies Allergy Verified 07/21/16 13:53 - Medications Medications: Current Medications Acetaminophen (Tylenol 325mg Tab) 650 mg PO Q6 PRN PRN Reason: Pain, moderate (4-7) Last Admin: 07/23/16 20:48 Dose: 650 mg Aspirin (Ecotrin) 81 mg PO DAILY CORNEL Last Admin: 07/24/16 09:00 Dose: 81 mg Enoxaparin Sodium (Lovenox) 80 mg SC Q12 [facility] PRN Reason: Protocol Last Admin: 07/24/16 21:19 Dose: 80 mg Glipizide (Glucotrol) 5 mg PO ACB [facility] Insulin Human Regular (Humulin R) 0 units SC ACHS [facility] PRN Reason: Protocol Last Admin: 07/24/16 22:16 Dose: Not Given Metformin HCl (Glucophage) 1,000 mg PO BIDWM [facility] Last Admin: 07/24/16 17:00 Dose: 1,000 mg Physical Exam - Head Exam Head Exam: ATRAUMATIC - Eye Exam Eye Exam: Normal appearance - ENT Exam ENT Exam: Mucous Membranes Dry - Neck Exam Neck exam: Positive for: Normal Inspection - Respiratory Exam Respiratory Exam: NORMAL BREATHING PATTERN - Cardiovascular Exam Cardiovascular Exam: +S1, +S2 - GI/Abdominal Exam GI & Abdominal Exam: Normal Bowel Sounds - Extremities Exam Extremities exam: Positive for: normal inspection - Neurological Exam Neurological exam: Oriented x3 - Psychiatric Exam Psychiatric exam: Normal Affect, Normal Mood - Skin Skin Exam: Warm Results - Vital Signs Recent Vital Signs: Last Vital Signs Temp 98.2 F 07/24/16 23:55 Pulse 86 07/24/16 23:55 Resp 20 07/24/16 23:55 BP 151/83 H 07/24/16 23:55 Pulse Ox 94 L 07/24/16 23:55 - Labs Result Diagrams: 07/24/16 06:00 07/24/16 06:00 Labs: Laboratory Results - last 24 hr 07/22/16 07/24/16 07/24/16 06:57 05:43 06:00 WBC 12.2 H RBC 4.75 Hgb 12.3 Hct 37.8 MCV 79.6 L MCH 25.9 L MCHC 32.5 L RDW 13.8 Plt Count 354 Sodium 141 Potassium 4.0 Chloride 99 Carbon Dioxide 26 Anion Gap 20 BUN 12 Creatinine 0.4 L Est GFR ( Amer) > 60 Est GFR (Non-Af Amer) > 60 POC Glucose (mg/dL) 162 H Random Glucose 169 H Hemoglobin A1c 10.4 H Calcium 9.2 Total Bilirubin 0.9 AST 20 ALT 23 Alkaline Phosphatase 118 Total Protein 8.6 H Albumin 3.8 Globulin 4.8 H Albumin/Globulin Ratio 0.8 L 03/20/17 03/20/17 03/20/17 11:46 15:42 21:55 WBC RBC Hgb Hct MCV MCH MCHC RDW Plt Count Sodium Potassium Chloride Carbon Dioxide Anion Gap BUN Creatinine Est GFR ( Amer) Est GFR (Non-Af Amer) POC Glucose (mg/dL) 235 H 234 H 211 H Random Glucose Hemoglobin A1c Calcium Total Bilirubin AST ALT Alkaline Phosphatase Total Protein Albumin Globulin Albumin/Globulin Ratio Assessment & Plan (1) Pulmonary emboli Assessment and Plan: unprovoked therapeutic anticoagulation with outpatient anticoagulation for minimum of 3 months inherited thrombophilia work up sent lower extremity venous duplex to rule out DVT Status: Acute (2) Elevated serum globulin level Assessment and Plan: will evaluate for monoclonal protein Status: Acute (3) B12 deficiency Assessment and Plan: IM B12 supplementation Thank you for this interesting consult. Status: Acute
[2016-07-25 07:22] LABS: HEMATOCRIT 36.7 % (34.0-47.0); MEAN CELL VOLUME 79.5 fl (81.0-99.0); MEAN CORPUSCULAR HEMOGLOBIN 26.1 pg (27.0-31.0); MEAN CORPUSCULAR HGB CONC 32.8 g/dL (33.0-37.0); RED CELL DISTRIBUTION WIDTH 13.9 % (11.5-14.5); WHITE BLOOD COUNT 11.6 K/uL (4.8-10.8)
[2016-07-25 07:41] LABS: ALB/GLOB RATIO 0.8 (1.0-2.1); ALKALINE PHOSPHATASE 117 U/L (38-126); ALT/SGPT 22 U/L (9-52); AST/SGOT 20 U/L (14-36); BILIRUBIN,TOTAL 0.7 mg/dl (0.2-1.3); BLOOD UREA NITROGEN 13 mg/dl (7-17); CALCIUM 9.3 mg/dL (8.4-10.2); CARBON DIOXIDE 28 mmol/L (22-30); CHLORIDE 99 mmol/L (98-107); GFR AFRICAN-AMERICAN > 60; GLUCOSE,RANDOM 161 mg/dL (65-105); POTASSIUM 3.7 MMOL/L (3.6-5.0); SODIUM 143 mmol/l (132-148); TOTAL PROTEIN 8.3 G/DL (6.3-8.2)
[2016-07-25 08:38] VITALS: BP 167/93; PULSE 76; RESP 18; TEMP 97.4; O2SAT 95
[2016-07-25] MEDS: Insulin Regular 100 units/ml SC SCH (08:45)
[2016-07-25] MEDS: Enoxaparin 80 mg Syringe SC SCH (08:45)
--- NOTE | 2016-07-25 11:03 | US ---
PROCEDURE: Bilateral lower extremity venous duplex Doppler. HISTORY: PE r/o DVT COMPARISON: None available. TECHNIQUE: Bilateral common femoral, superficial femoral, popliteal and posterior tibial veins were evaluated. Flow was assessed with color Doppler, compressibility, assessment of phasic flow and augmentation response. FINDINGS: COMMON FEMORAL VEIN: Right CFV: Unremarkable. Left CFV: Unremarkable. SUPERFICIAL FEMORAL VEIN: Right SFV: Unremarkable. Left SFV: Unremarkable. POPLITEAL VEIN: Right Popliteal: Unremarkable. Left Popliteal: Unremarkable. POSTERIOR TIBIAL VEIN: Right PTV: Unremarkable. Left PTV: Unremarkable. OTHER FINDINGS: None. IMPRESSION: No evidence of deep venous thrombosis in right or left lower extremity. .
--- NOTE | 2016-07-25 11:06 | PN ---
DATE: 07/25/2016 The patient seen and examined. Interim events noted. Cardiology and hematology consult noted and ap preciated. The patient remains in progressive care unit on telemetry monitoring. The patient feels okay. No chest pain, no shortness of breath. Ambulating and doing her ADL without assistance withou t any problem. PHYSICAL EXAMINATION: GENERAL: The patient is in no acute distress. VITAL SIGNS: Stable. HEART: S1, S2 normal, regular. LUNGS: Good bilateral air exchange. ABDOMEN: Soft, nontender. EXTREMITIES: No calf swelling, no tenderness, no acute ischemia. CENTRAL NERVOUS SYSTEM: Essentially unchanged. DIAGNOSTIC DATA: Available diagnostic data reviewed. Overall, patient's general medical condition is stable and improving. Will discuss with hematology t o see if patient can be discharged on oral newer agents for anticoagulation, and follow up as outpati ent. PLAN: As ordered. Case and plan discussed with patient. Rafael Garcia MD cc: [id number] TT: 07/25/2016 11:05:45 Confirmation # [id number] Dictation # [id number] arcenio
--- NOTE | 2016-07-25 12:25 | CP.PCM.PCO ---
Assessment and Plan - Assessment and Plan (Free Text) Assessment: Patient on lovenox SQ for bilateral small pulmonary emboli. Ultrasound for bilateral dvt negative. Discussed with Dr Corea, plan to start xarelto 15mg PO bid x 21 days then 20mg po daily Follow up with Dr Corea in 1 week for inherited thrombophilia work up sent and Dr Garcia in 3-5 days for diabetic management
[2016-07-26 01:58] LABS: TOTAL PROTEIN, SERUM 7.5 g/dL (6.1-8.1)
== END 2016-07-25 15:02 | disposition home or self-care (01) | DRG 176 ==
LOC: H.ER 13:30 → H.ERHOLD 17:58 → H.TEL 23:45
PROVIDERS: ADMIT Internal Medicine; ATTEND Internal Medicine
PROC: 3E0234Z Introduction of Serum, Toxoid and Vaccine into Muscle, Percutaneous Approach (ICD-10-PCS; principal; 2016-07-22)
DX: I26.99 Other pulmonary embolism without acute cor pulmonale (principal); E11.40 Type 2 diabetes mellitus with diabetic neuropathy, unspecified; E11.65 Type 2 diabetes mellitus with hyperglycemia; Z23 Encounter for immunization; Z86.73 Personal history of transient ischemic attack (TIA), and cerebral infarction without residual deficits; E66.9 Obesity, unspecified; Z68.32 Body mass index [BMI] 32.0-32.9, adult; E53.8 Deficiency of other specified B group vitamins

== ENCOUNTER 2017-09-03 14:25 | Inpatient (IN) | payer OTHER ==
--- NOTE | 2017-09-03 15:22 | ED PDOC ---
HPI: CCC, URI, Sore Throat Time Seen by Provider: 09/03/17 14:41 Chief Complaint (Nursing): Dizziness/Lightheaded Chief Complaint (Provider): Dizziness/Lightheaded History Per: Patient, Family (daughter) History/Exam Limitations: no limitations Onset/Duration Of Symptoms: Days (x7) Current Symptoms Are (Timing): Still Present Additional Complaint(s): 66 year old female, with a past medical history of PE, hypertension, and a TIA, presents to the emergency department complaining of a non productive cough onset of one week. In addition to this, she reports a mild sore throat, runny nose, body aches, chills, a subjective fever, shortness of breath, and generalized weakness. Her daughter states that the patient fainted last night. PMD: None provided here but doctor is in [place] Past Medical History Reviewed: Historical Data, Nursing Documentation, Vital Signs Vital Signs: Last Vital Signs Temp 100.7 F H 09/04/17 11:53 Pulse 100 H 09/04/17 11:53 Resp 18 09/04/17 11:53 BP 136/74 09/04/17 11:53 Pulse Ox 93 L 09/04/17 11:53 - Medical History PMH: Asthma, CVA (about 5 years ago, left side weakness- resolved, no deficits ) , Diabetes (non insulin see HPI), Gall Bladder Disease (gall bladder sx - removed 2013), HTN, Hyperlipidemia, Pulmonary Embolism, TIA Denies: Chronic Kidney Disease - Surgical History Surgical History: Cholecystectomy (3 years ago) - Family History Family History: States: [place] (father ), Hypertension - Social History Current smoker - smoking cessation education provided: No Alcohol: None Drugs: Denies - Home Medications Home Medications: Ambulatory Orders Medication Instructions Recorded Aspirin [Adult Low Dose Aspirin EC] 81 mg PO DAILY 09/04/17 Glimepiride [amaRYL] 4 mg PO BID 09/04/17 Levothyroxine [Synthroid] 50 mcg PO DAILY 09/04/17 Lisinopril [Prinivil] 40 mg PO DAILY 09/04/17 MetFORMIN [glucOPHAGE] 1,000 mg PO BID 09/04/17 amLODIPine [Norvasc] 10 mg PO DAILY 09/04/17 - Allergies Allergies/Adverse Reactions: Allergies Allergy/AdvReac Type Severity Reaction Status Date / Time No Known Allergies Allergy Verified 07/21/16 13:53 Review of Systems ROS Statement: Except As Marked, All Systems Reviewed And Found Negative Constitutional: Positive for: Fever, Chills, Weakness (generalized), Other ( body aches) ENT: Positive for: Nose Discharge, Nose Congestion, Throat Pain Respiratory: Positive for: Cough (non productive), Shortness of Breath Neurological: Positive for: Other (loss of consciousness) Physical Exam - Reviewed Nursing Documentation Reviewed: Yes Vital Signs Reviewed: Yes - Physical Exam Appears: Positive for: Non-toxic, No Acute Distress (but tired appearing) Head Exam: Positive for: ATRAUMATIC, NORMOCEPHALIC Skin: Positive for: Warm, Dry Eye Exam: Positive for: EOMI, PERRL ENT: Positive for: Pharynx Is (clear), Other (dry mucous membranes) Neck: Positive for: Painless ROM, Supple Cardiovascular/Chest: Positive for: Tachycardia (regular rhythm). Negative for : Murmur Respiratory: Positive for: Decreased Breath Sounds (at bases), Rhonchi (faint bilaterally) Gastrointestinal/Abdominal: Positive for: Soft. Negative for: Tenderness Back: Positive for: Normal Inspection. Negative for: Decreased ROM Extremity: Positive for: Normal ROM. Negative for: Deformity Lymphatic: Negative for: Adenopathy Neurologic/Psych: Positive for: Alert. Negative for: Motor/Sensory Deficits - Laboratory Results Result Diagrams: 09/04/17 05:00 09/04/17 05:00 - ECG O2 Sat by Pulse Oximetry: 97 (RA) Pulse Ox Interpretation: Normal Medical Decision Making Medical Decision Making: Initial Impression: weakness, cough, syncope DDx include but are not limited to: Pneumonia, viral syndrome, influenza, dehydration, PE, ACS, CHF Time: 14:53 Initial Plan: --Type and Screen --VBG --ECG --BNP --CMP --Magnesium --Phosphorous --TSH --Trop I --ED Urine dipstick --CBC with differential --Chest Portable XR --PT and PTT --Glucose POC --Sodium Chloride 0.9% 500 ml IV --Blood Culture --Influenza A B Time: 15:48 Chest XR FINDINGS: LUNGS: No active pulmonary disease. PLEURA: No significant pleural effusion identified, no pneumothorax apparent. CARDIOVASCULAR: Shortness OSSEOUS STRUCTURES: No significant abnormalities. VISUALIZED UPPER ABDOMEN: Normal. OTHER FINDINGS: None. IMPRESSION: No active disease. Of breath No radiographic findings to suggest acute or significant cardiovascular disease. No significant interval change compared to the prior examination(s). Time:16:53 EKG Reading: NSR at 98bpm. Normal QRS. Normal ST segments. Time: 1818 CT Chest with contrast (Pulmonary Angiogram) FINDINGS: PULMONARY ARTERIES: There are no filling defects in the pulmonary arteries to suggest acute pulmonary embolism although evaluation is limited due to missed bolus. . AORTA: No acute findings. No thoracic aortic aneurysm. There is an apparent right subclavian artery. LUNGS: The lungs are well inflated and there is patchy ground-glass attenuation. No nodule, mass or pulmonary consolidation. PLEURAL SPACES: No effusion or pneuomothorax. HEART: Mild cardiomegaly and small pericardial effusion. LYMPH NODES: No pathologic lymphadenopathy. BONES, CHEST WALL: Diffuse bone demineralization and multilevel degenerative disc disease. No fracture or destructive lesion OTHER FINDINGS: Unremarkable. IMPRESSION: 1. Suboptimal examination due to missed bolus. Allowing for this, no large central pulmonary embolism. 2. Mild cardiomegaly and small pericardial effusion. 3. Mild ground-glass attenuation in the lungs is nonspecific and could be related to mild alveolar pulmonary edema or nonspecific inflammation. Dr Herndon Med Service for hospitalization for sepsis and chest pain. Lovenox for PE prevention (rather than PE treatment) advised by Dr Herndon, pending further evaluation. Scribe Attestation: Documented by Sara Lobo, acting as a scribe for Irma Martino MD Provider Scribe Attestation: All medical entries made by the Scribe were at my direction and personally dictated by me. I have reviewed the chart and agree that the record accurately reflects my personal performance of the history, physical exam, medical decision making, and the department course for this patient. I have also personally directed, reviewed, and agree with the discharge instructions and disposition. Disposition - Clinical Impression Clinical Impression: Sepsis, Bronchitis Counseled Patient/Family Regarding: Studies Performed, Diagnosis - Disposition Disposition Time: 18:00 Condition: FAIR - Pt Status Changed To: Hospital Disposition Of: Inpatient - Admit Certification Admit to Inpatient:: After my assessment, the patient will require hospitalization for at least two midnights. This is because of the severity of symptoms shown, intensity of services needed, and/or the medical risk in this patient being treated as an outpatient. - POA Present On Arrival: Poor Glycemic Control, Deep Vein Thrombosis / PE (history)
[2017-09-03 15:23] LABS: BASO # 0.1 K/uL (0.0-0.2); BASO % 0.3 % (0.0-2.0); EOS # 0.1 K/uL (0.0-0.7); EOS % 0.5 % (0.0-4.0); HEMOGLOBIN 12.6 g/dL (12.0-16.0); LYMPH # 1.4 K/uL (1.0-4.3); MEAN CORPUSCULAR HEMOGLOBIN 26.8 pg (27.0-31.0); MEAN PLATELET VOLUME 9.6 fl (7.2-11.7); MONO # 2.3 K/uL (0.0-0.8); MONO % 13.6 % (0.0-10.0); NEUT % 77.6 % (50.0-75.0); PLATELET COUNT 261 K/uL (130-400); RBC 4.69 Mil/uL (3.80-5.20); RED CELL DISTRIBUTION WIDTH 14.4 % (11.5-14.5); WHITE BLOOD COUNT 16.8 K/uL (4.8-10.8)
[2017-09-03 15:26] LABS: VENOUS BLOOD GAS BASE EXCESS 3.9 mmol/L (0.0-2.0); VENOUS BLOOD GAS PCO2 38 mmHg (40-60); VENOUS BLOOD GAS PO2 53 mm/Hg (30-55); VENOUS BLOOD PH 7.47 (7.32-7.43)
[2017-09-03] MEDS ORDERED: Sodium Chloride 0.9% 500 ML IV STA (15:32)
[2017-09-03 15:45] LABS: INR 1.3 (0.9-1.2); PARTIAL THROMBOPLASTIN TIME 27.3 Seconds (25.6-37.1); PROTHROMBIN TIME 14.7 Seconds (9.8-13.1)
[2017-09-03 15:48] LABS: ALB/GLOB RATIO 0.9 (1.0-2.1); ALBUMIN 3.7 g/dL (3.5-5.0); ALT/SGPT 40 U/L (9-52); AST/SGOT 42 U/L (14-36); BLOOD UREA NITROGEN 24 mg/dl (7-17); GFR AFRICAN-AMERICAN > 60; GFR NON-AFRICAN AMERICAN > 60
--- NOTE | 2017-09-03 15:50 | RAD ---
HISTORY: sob COMPARISON: 07/21/2016 FINDINGS: LUNGS: No active pulmonary disease. PLEURA: No significant pleural effusion identified, no pneumothorax apparent. CARDIOVASCULAR: Shortness OSSEOUS STRUCTURES: No significant abnormalities. VISUALIZED UPPER ABDOMEN: Normal. OTHER FINDINGS: None. IMPRESSION: No active disease. Of breath No radiographic findings to suggest acute or significant cardiovascular disease. No significant interval change compared to the prior examination(s).
[2017-09-03 15:58] LABS: B-TYPE NATRIURETIC PEPTIDE 354 pg/ml (0-900)
[2017-09-03] MEDS ORDERED: Azithromycin 500 MG in Sodium Chloride 0.9% 250 ML IVPB STA (16:10)
[2017-09-03] MEDS ORDERED: cefTRIAXone (Rocephin) 1 gm Inj ONE (16:14)
[2017-09-03] MEDS ORDERED: Iodixanol 320 MG/ML 100 ML BOTTLE IV ONE (17:12)
[2017-09-03] MEDS ORDERED: Sodium Chloride 0.9% 100 ML ONE (17:13)
[2017-09-03 17:36] LABS: LYMPHOCYTE 8 % (20-50); MONOCYTE 10 % (0-10); NEUTROPHIL 82 % (42-75); TOTAL CELLS COUNTED 100
[2017-09-03 17:38] LABS: MICROCYTOSIS SLIGHT; PLATELET ESTIMATE NORMAL (NORMAL)
--- NOTE | 2017-09-03 18:21 | CT ---
PROCEDURE: CT Chest with contrast (Pulmonary Angiogram) HISTORY: Cough sob h/o PE COMPARISON: None available. TECHNIQUE: Axial computed tomography images were obtained of the chest in the pulmonary arterial phase of enhancement. Coronal and sagittal reformatted images were created and reviewed. Intravenous contrast dose: 90 mL Visipaque 320 Radiation dose: Total exam DLP = 414.42 mGy-cm. This CT exam was performed using one or more of the following dose reduction techniques: Automated exposure control, adjustment of the mA and/or kV according to patient size, and/or use of iterative reconstruction technique. FINDINGS: PULMONARY ARTERIES: There are no filling defects in the pulmonary arteries to suggest acute pulmonary embolism although evaluation is limited due to missed bolus. . AORTA: No acute findings. No thoracic aortic aneurysm. There is an apparent right subclavian artery. LUNGS: The lungs are well inflated and there is patchy ground-glass attenuation. No nodule, mass or pulmonary consolidation. PLEURAL SPACES: No effusion or pneuomothorax. HEART: Mild cardiomegaly and small pericardial effusion. LYMPH NODES: No pathologic lymphadenopathy. BONES, CHEST WALL: Diffuse bone demineralization and multilevel degenerative disc disease. No fracture or destructive lesion OTHER FINDINGS: Unremarkable. IMPRESSION: 1. Suboptimal examination due to missed bolus. Allowing for this, no large central pulmonary embolism. 2. Mild cardiomegaly and small pericardial effusion. 3. Mild ground-glass attenuation in the lungs is nonspecific and could be related to mild alveolar pulmonary edema or nonspecific inflammation.
[2017-09-03] MEDS ORDERED: Enoxaparin 40 mg Syringe SC STA (19:13)
[2017-09-03] MEDS ORDERED: Albuterol-Ipratrop 3 mg / 0.5 (3 ml) UD INH PRN (23:29)
[2017-09-03] MEDS ORDERED: Sodium Chloride 3% for Inhalation 4 ML VIAL.NEB IH PRN (23:33)
[2017-09-04] MEDS: Albuterol-Ipratrop 3 mg / 0.5 (3 ml) UD INH SCH ×4 (01:20→19:14)
[2017-09-04 05:42] LABS: HEMOGLOBIN 11.3 g/dL (12.0-16.0); MEAN CELL VOLUME 79.1 fl (81.0-99.0); MEAN CORPUSCULAR HEMOGLOBIN 26.6 pg (27.0-31.0); MEAN CORPUSCULAR HGB CONC 33.6 g/dL (33.0-37.0); RBC 4.26 Mil/uL (3.80-5.20); RED CELL DISTRIBUTION WIDTH 14.3 % (11.5-14.5); WHITE BLOOD COUNT 15.9 K/uL (4.8-10.8)
[2017-09-04 05:48] LABS: ALB/GLOB RATIO 0.9 (1.0-2.1); ALBUMIN 3.2 g/dL (3.5-5.0); ALT/SGPT 38 U/L (9-52); AST/SGOT 28 U/L (14-36); BLOOD UREA NITROGEN 24 mg/dl (7-17); CALCIUM 8.7 mg/dL (8.4-10.2); GFR AFRICAN-AMERICAN > 60; GFR NON-AFRICAN AMERICAN > 60
[2017-09-04 05:51] LABS: B-TYPE NATRIURETIC PEPTIDE 533 pg/ml (0-900)
[2017-09-04] MEDS ORDERED: Glucagon Recombinant 1 mg Inj IM PRN (08:54)
[2017-09-04] MEDS ORDERED: Dextrose 50% SYRINGE Inj (50 ml) IV PRN (08:54)
[2017-09-04] MEDS: Enoxaparin 40 mg Syringe SC SCH (09:12)
[2017-09-04] MEDS: Azithromycin 500 MG in Sodium Chloride 0.9% 250 ML IVPB SCH (11:14)
--- NOTE | 2017-09-04 11:14 | HP ---
HISTORY OF PRESENT ILLNESS: Ms. Bowden is a 66-year-old female who was admitted via the emergency room because of shortness of breath and cough for the past 1 week prior to presentation. She showed up in the emergency room and reported that she had a sore throat and runny nose and some chills and body aches, but no fever for the past several days. Shortness of breath, however, has worsened and she was brought to the hospital by daughter who indicated that the patient had fainted on the night prior to admission. PAST MEDICAL HISTORY: Hypertension, hypothyroidism, diabetes mellitus, asthma, and she had what appeared to be a CVA 5 years ago and pulmonary emboli, which was also treated multiple years ago. FAMILY HISTORY: Unrevealing. SOCIAL HISTORY: She does not smoke or drink. REVIEW OF SYSTEMS: Essentially unremarkable. PHYSICAL EXAMINATION: GENERAL: The patient is alert and oriented, appears much more comfortable this morning. VITAL SIGNS: Blood pressure 134/69 with the pulse of 98, respiratory rate is 18. She is afebrile. O2 sat 97% on room air. SKIN: Shows fair turgor. HEENT: Pupils are equal and reactive to light and accommodation. Mouth shows fair hygiene. LUNGS: Fair aeration with bilateral wheezing and dullness at the bases. HEART: S1 and S2. ABDOMEN: Soft and nontender, no organomegaly. EXTREMITIES: Shows no edema or cyanosis. CENTRAL NERVOUS SYSTEM: Exam grossly intact. LABORATORY DATA: Remarkable for WBC of 16.8, hemoglobin of 12.6, and platelet count of 261,000. Sodium 132, potassium 4.5, BUN 24, creatinine 0.8, and serum glucose 353. CT scan of the chest to rule out acute pulmonary emboli, was suboptimal, but shows cardiomegaly and small pericardial effusion, mild ground-glass appearance of the lungs. EKG official report pending. IMPRESSION: Shortness of breath, probably due to asthma exacerbation, one has to rule out mild congestive heart failure, hypertension, hypothyroidism, and diabetes mellitus poorly controlled with hyperglycemia. fever-r/o uti/uri PLAN: The plan is continue therapy as ordered. We will obtain cardiology consult. Monitor blood sugar appropriately and discharge planning will depend on clinical findings. Kiko Herndon MD [facility] # [id number] MTDTalia
[2017-09-04] MEDS: Insulin Regular 100 units/ml SC SCH ×2 (11:49→17:05)
[2017-09-04 14:32] LABS: T4 6.66 ug/dl (5.5-11.0)
--- NOTE | 2017-09-04 16:07 | CARD ---
APPROVED REPORT EXAM: Two-dimensional and M-mode echocardiogram with Doppler and color Doppler. Other Information Quality : AverageRhythm : NSR INDICATION Syncope 2D DIMENSIONS IVSd1.27 (0.7-1.1cm)LVDd4.68 (3.9-5.9cm) LVOT Diameter1.83 (1.8-2.4cm)PWd1.08 (0.7-1.1cm) IVSs1.60 (0.8-1.2cm)LVDs2.92 (2.5-4.0cm) FS (%) 37.6 %PWs1.59 (0.8-1.2cm) LVEF (%)55.0 (>50%) M-Mode DIMENSIONS Left Atrium (MM)3.31 (2.5-4.0cm)IVSd1.25 (0.7-1.1cm) Aortic Root3.19 (2.2-3.7cm)LVDd4.44 (4.0-5.6cm) Aortic Cusp Exc.2.00 (1.5-2.0cm)PWd1.25 (0.7-1.1cm) IVSs1.75 cmFS (%) 58 % LVDs1.88 (2.0-3.8cm)PWs2.09 cm Mitral Valve MV E Sqhrtijh799.8cm/sMV DECEL [id number] A Vuclxelg215.3cm/s MV ZKE08rcT/A ratio0.8MVA (PHT)4.47cm2 TDI Lateral E' Peak V9.04cm/sMedial E' Peak V5.95cm/sE/Lateral E'12.9 E/Medial E'19.6 Pulmonary Valve PV Peak Vsgyveov339.7cm/s LEFT VENTRICLE The left ventricle is normal size. There is mild to moderate concentric left ventricular hypertrophy. The left ventricular function is normal. The left ventricular ejection fraction is within the normal range. There is normal LV segmental wall motion. Transmitral Doppler flow pattern is Grade I-abnormal relaxation pattern. RIGHT VENTRICLE The right ventricle is normal size. There is normal right ventricular wall thickness. The right ventricular systolic function is normal. ATRIA The left atrium size is normal. The right atrium size is normal. AORTIC VALVE The aortic valve is not well visualized. No aortic regurgitation is present. There is trace valvular aortic stenosis. MITRAL VALVE The mitral valve is not well visualized. There is no mitral valve stenosis. There is no mitral valve regurgitation noted. TRICUSPID VALVE The tricuspid valve is normal in structure. There is no tricuspid valve regurgitation noted. PULMONIC VALVE The pulmonary valve is normal in structure. There is no pulmonic valvular regurgitation. GREAT VESSELS The aortic root is normal in size. The IVC is normal in size and collapses >50% with inspiration. PERICARDIAL EFFUSION There is a trace loculated anterior pericardial effusion. <Conclusion> The left ventricle is normal size. There is mild to moderate concentric left ventricular hypertrophy. The left ventricular function is normal. The left ventricular ejection fraction is within the normal range. There is normal LV segmental wall motion. Transmitral Doppler flow pattern is Grade I-abnormal relaxation pattern.
--- NOTE | 2017-09-04 18:51 | CARD ---
APPROVED REPORT EKG Measurement Heart [id number] <Conclusion> Normal sinus rhythm Normal ECG
--- NOTE | 2017-09-04 19:09 | CARD ---
APPROVED REPORT EKG Measurement Heart [id number] WI [id number] <Conclusion> Normal sinus rhythm Possible Left atrial enlargement Borderline ECG
--- NOTE | 2017-09-04 20:06 | CP.PCM.CON ---
History of Present Illness - History of Present Illness History of Present Illness: 66 Y/O FEMALE WITH LH X SEVERAL WEEKS. SHE STATES IT OCCURS WHEN SHE STANDS FROM SEATED POSITION. PT RECENTLY RETURNED FROM [place] WHERE SHE WAS GIVEN HER MEDICATIONS FOR BP AND A MEDICINE FOR THYROID. SHE STATES HER BP MEDS HAVE NOT CHANGED. PT DENIES SYNCOPE, PALP, CP, SOB, N/V/D. SHE IS CONSTIPATED. SHE ADMITS TO THIRST. PT HAS A HX OF PE 1 YEAR AGO. CURRENTLY UNCLEAR IF SHE IS BEING FOLLOWED FOR HER HX OF PE/DVT OR IF SHE IS GETTING ANTICOAG. CTA IN ER NEGATIVE FOR PE. ECHO IMAGES REVIEWED. EF 75, LV UNDERFILLED. LABS REVEAL PRERENAL STATE AND UTI. Review of Systems - Constitutional Constitutional: As Per HPI, Fatigue, Malaise. absent: Anorexia, Chills, Daytime Sleepiness, Excessive Sweating, Fever, Frequent Falls, Headache, Increased Appetite, Lethargy, Night Sweats, Snoring, Sleep Apnea, Weight Gain, Weight Loss, Weakness, Other - EENT Eyes: As Per HPI. absent: Blind Spots, Blurred Vision, Change in Vision, Decreased Night Vision, Diplopia, Discharge, Dry Eye, Exophthalmos, Floaters, Irritation, Itchy Eyes, Loss of Peripheral Vision, Pain, Photophobia, Requires Corrective Lenses, Sees Flashes, Spots in Vision, Tunnel Vision, Other Visual Disturbances, Loss of Vision, Other Ears: As Per HPI. absent: Decreased Hearing, Ear Discharge, Ear Pain, Tinnitus , Abnormal Hearing, Disequilibrium, Dizziness, Other Nose/Mouth/Throat: As Per HPI. absent: Epistaxis, Nasal Congestion, Nasal Discharge, Nasal Obstruction, Nasal Trauma, Nose Pain, Post Nasal Drip, Sinus Pain, Sinus Pressure, Bleeding Gums, Change in Voice, Dental Pain, Dry Mouth, Dysphagia, Halitosis, Hoarsness, Lip Swelling, Mouth Lesions, Mouth Pain, Odynophagia, Sore Throat, Throat Swelling, Tongue Swelling, Facial Pain, Neck Pain, Neck Mass, Other - Breasts Breasts: As Per HPI. absent: Change in Shape, Mass, Pain, Nipple Discharge, Nipple Inversion, Skin Changes, Swelling, Other - Cardiovascular Cardiovascular: As Per HPI. absent: Acrocyanosis, Chest Pain, Chest Pain at Rest, Chest Pain with Activity, Claudication, Diaphoresis, Dyspnea, Dyspnea on Exertion, Edema, Irregular Heart Rhythm, Pain Radiating to Arm/Neck/Jaw, Leg Edema, Leg Ulcers, Lightheadedness, Orthopnea, Palpitations, Paroxysmal Nocturnal Dyspnea, Pedal Edema, Radiating Pain, Rapid Heart Rate, Slow Heart Rate, Syncope, Other - Respiratory Respiratory: As Per HPI, Cough. absent: Dyspnea, Hemoptysis, Dyspnea on Exertion, Wheezing, Snoring, Stridor, Pain on Inspiration, Chest Congestion, Excessive Mucous Production, Change in Mucous Color, Pain with Coughing, Other - Gastrointestinal Gastrointestinal: As Per HPI, Constipation. absent: Abdominal Pain, Belching, Bloating, Change in Bowel Habits, Change in Stool Character, Coffee Ground Emesis, Cramping, Diarrhea, Dyspepsia, Dysphagia, Early Satiety, Excessive Flatus, Fecal Incontinence, Heartburn, Hematemesis, Hematochezia, Loose Stools, Melena, Nausea, Odynophagia, Temesmus, Vomiting, Other - Genitourinary Genitourinary: As Per HPI, Dysuria. absent: Change in Urinary Stream, Difficulty Urinating, Flank Pain, Hematuria, Pyuria, Nocturia, Urinary Incontinence, Urinary Frequency, Urinary Hesitance, Urinary Urgency, Voiding Freq/Small Amts, Freq UTI, Hx Renal/Bladder Calculi, Hx /Renal Surgery, Bladder Distension, Other - Reproductive: Female Reproductive:Female: absent: As Per HPI, Amenorrhea, Amenorrhea/ Control, Currently Menstual, Cycle <21 Days, Cycle >35 Days, Cycle Variable, Menses 1-7 Days, Menses >/= 8 Days, Menses Variable, Cycle > 4 Weeks Between, No Menses for 6 Months, Heavy Menses, Light Menses, Normal Menses, Spotting Between Cycles , S/P Hysterectomy, Menopausal, Post Menopausal, Premenarche, Abnormal Vaginal Bleeding, Dysmenorrhea, Dyspareunia, Genital Lesions, Genital Pruritis, Pelvic Pain, Prolapse Symptoms, Sexual Dysfunction, Vaginal Discharge, Vaginal Dryness , Vaginal Odor, Vaginal Pruritis, Other - Menstruation Menstruation: absent: As Per HPI, Amenorrhea, Amenorrhea/ Control, Currently Menstual, Cycle <21 Days, Cycle >35 Days, Cycle Variable, Menses 1-7 Days, Menses >/= 8 Days, Menses Variable, Cycle > 4 Weeks Between, No Menses for 6 Months, Heavy Menses, Light Menses, Normal Menses, Spotting Between Cycles , S/P Hysterectomy, Menopausal, Post Menopausal, Premenarche, Abnormal Vaginal Bleeding, Dysmenorrhea, Other - Musculoskeletal Musculoskeletal: As Per HPI. absent: Abnormal Gait, Arthralgias, Atrophy, Back Pain, Deformity, Joint Swelling, Limited Range of Motion, Loss of Height, Muscle Cramps, Muscle Weakness, Myalgias, Neck Pain, Numbness, Radiating Pain into Limb, Stiffness, Tingling, Other - Integumentary Integumentary: As Per HPI. absent: Acne, Alopecia, Bleeding Lesions, Change in Hair, Change in Nails, Change in Pigmentation, Changing Lesions, Dry Skin, Erythema, Furuncle, Hirsutism, Lesions, New Lesions, Non-Healing Lesions, Photosensitivity, Pruritus, Rash, Skin Pain, Skin Ulcer, Sores, Striae, Swelling , Unusual Bruising, Wounds, Jaundice, Other - Neurological Neurological: Dizziness. absent: As Per HPI, Abnormal Gait, Abnormal Hearing, Abnormal Movements, Abnormal Speech, Behavioral Changes, Burning Sensations, Confusion, Convulsions, Disequilibrium, Numbness, Focal Weakness, Frequent Falls , Headaches, Lack of Coordination, Loss of Vision, Memory Loss, Paresthesias, Radicular Pain, Restless Legs, Sensory Deficit, Syncope, Tingling, Tremor, Vertigo, Weakness, Other Visual Disturbances, Other - Psychiatric Psychiatric: As Per HPI. absent: Abnormal Sleep Pattern, Anhedonia, Anxiety, Auditory Hallucinations, Behavioral Changes, Change in Appetite, Change in Libido, Confusion, Depression, Difficulty Concentrating, Hallucinations, Homicidal Ideation, Hopelessness, Irritability, Memory Loss, Mood Swings, Panic Attacks, Paranoia, Suicidal Ideation, Visual Hallucinations, Tactile Hallucinations, Other - Endocrine Endocrine: As Per HPI. absent: Change in Body Appearance, Change in Libido, Cold Intolorance, Deepening of Voice, Excessive Sweating, Fatigue, Flushing, Heat Intolorance, Increase in Ring/Shoe/Hat Size, Palpitations, Polydipsia, Polyphagia, Polyuria, Other - Hematologic/Lymphatic Hematologic: As Per HPI. absent: Easy Bleeding, Easy Bruising, Lymphadenopathy , Other Past Patient History - Infectious Disease Hx of Infectious Diseases: None - Past Medical History & Family History Past Medical History?: Yes - Past Social History Chewing Tobacco Use: No Cigar Use: No Alcohol: None Drugs: Denies - CARDIAC Hx Hypertension: Yes - PULMONARY Hx Asthma: Yes Hx Pulmonary Embolism: Yes - NEUROLOGICAL Hx Transient Ischemic Attacks (TIA): Yes - HEENT Hx HEENT Problems: No - RENAL Hx Chronic Kidney Disease: No - ENDOCRINE/METABOLIC Hx Endocrine Disorders: Yes Hx Diabetes Mellitus Type 2: Yes - HEMATOLOGICAL/ONCOLOGICAL Hx Blood Disorders: No - INTEGUMENTARY Hx Dermatological Problems: No - MUSCULOSKELETAL/RHEUMATOLOGICAL Hx Musculoskeletal Disorders: No Hx Falls: Yes - GASTROINTESTINAL Hx Gall Bladder Disease: Yes (gall bladder sx - removed 2013) - GENITOURINARY/GYNECOLOGICAL Hx Genitourinary Disorders: No - PSYCHIATRIC Hx Psychophysiologic Disorder: No Hx Substance Use: No - SURGICAL HISTORY Hx Cholecystectomy: Yes (3 years ago) - ANESTHESIA Hx Anesthesia: Yes Hx Anesthesia Reactions: No Hx Malignant Hyperthermia: No Meds Allergies/Adverse Reactions: Allergies Allergy/AdvReac Type Severity Reaction Status Date / Time FISH AdvReac SWELLING Verified 09/04/17 15:51 - Medications Medications: Current Medications Acetaminophen (Tylenol 325mg Tab) 650 mg PO Q4 PRN PRN Reason: fever 101and above Last Admin: 09/04/17 16:09 Dose: 650 mg Albuterol/Ipratropium (Duoneb 3 Mg/0.5 Mg (3 Ml) Ud) 3 ml INH RQ6 [facility] Last Admin: 09/04/17 19:14 Dose: 3 ml Amlodipine Besylate (Norvasc) 10 mg PO DAILY [facility] Last Admin: 09/04/17 11:51 Dose: 10 mg Aspirin (Ecotrin) 81 mg PO DAILY [facility] Last Admin: 09/04/17 09:08 Dose: 81 mg Dextrose (Dextrose 50% Inj) 0 ml IV STAT PRN; Protocol PRN Reason: Hypoglycemia Protocol Dextrose (Glutose 15) 0 gm PO ONCE PRN; Protocol PRN Reason: Hypoglycemia Protocol Enalapril Maleate (Vasotec) 5 mg PO DAILY [facility] Last Admin: 09/04/17 09:19 Dose: 5 mg Enoxaparin Sodium (Lovenox) 40 mg SC DAILY [facility] PRN Reason: Protocol Last Admin: 09/04/17 09:12 Dose: 40 mg Furosemide (Lasix) 40 mg IV DAILY [facility] Last Admin: 09/04/17 09:08 Dose: 40 mg Glipizide (Glucotrol) 10 mg PO BIDAC [facility] Last Admin: 09/04/17 17:06 Dose: 10 mg Glucagon (Glucagen Diagnostic Kit) 0 mg IM STAT PRN; Protocol PRN Reason: Hypoglycemia Protocol Azithromycin 500 mg/ Sodium (Chloride) 250 mls @ 250 mls/hr IVPB DAILY [facility] PRN Reason: Protocol Last Admin: 09/04/17 11:14 Dose: 250 mls/hr Ceftriaxone Sodium 1 gm/ (Sodium Chloride) 100 mls @ 100 mls/hr IVPB DAILY [facility] PRN Reason: Protocol Last Admin: 09/04/17 09:18 Dose: 100 mls/hr Insulin Human Regular (Humulin R) 0 units SC ACHS [facility] PRN Reason: Protocol Last Admin: 09/04/17 17:05 Dose: 2 units Lactulose (Enulose) 20 gm PO DAILY PRN PRN Reason: Constipation Last Admin: 09/04/17 16:12 Dose: 20 gm Levothyroxine Sodium (Synthroid) 50 mcg PO DAILY@0630 [facility] Metformin HCl (Glucophage) 1,000 mg PO BIDWM [facility] Last Admin: 09/04/17 16:11 Dose: 1,000 mg Physical Exam - Constitutional Appears: Well - Head Exam Head Exam: ATRAUMATIC, NORMAL INSPECTION, NORMOCEPHALIC - Eye Exam Eye Exam: EOMI, Normal appearance, PERRL. absent: Conjunctival injection, Nystagmus, Periorbital swelling, Periorbital tenderness, Scleral icterus Pupil Exam: NORMAL ACCOMODATION, PERRL. absent: Fixed, Irregular, Miosis, Mydriatic, Unequal - ENT Exam ENT Exam: Mucous Membranes Dry. absent: Mucous Membranes Moist, Normal Exam, Normal External Ear Exam, Normal Oropharynx, TM's Normal Bilaterally - Neck Exam Neck exam: Positive for: Normal Inspection. Negative for: Full Rom, Lymphadenopathy, Meningismus, Tenderness, Thyromegaly - Respiratory Exam Respiratory Exam: Clear to Auscultation Bilateral, NORMAL BREATHING PATTERN. absent: Accessory Muscle Use, Chest Wall Tenderness, Decreased Breath Sounds, Prolonged Expiratory Phase, Rales, Rhonchi, Wheezes, Respiratory Distress, Stridor - Cardiovascular Exam Cardiovascular Exam: REGULAR RHYTHM, +S1, +S2, Systolic Murmur. absent: Bradycardia, Tachycardia, Clicks, Diastolic murmur, Gallop, Irregular Rhythm, JVD, RRR, Rubs, +S4 - GI/Abdominal Exam GI & Abdominal Exam: Normal Bowel Sounds, Soft. absent: Bruit, Diminished Bowel Sounds, Distended, Firm, Guarding, Hernia, Hyperactive Bowel Sounds, Hypoactive Bowel Sounds, Mass, Organomegaly, Pulsatile Mass, Rebound, Rigid, Tenderness - Rectal Exam Rectal Exam: Deferred - Extremities Exam Extremities exam: Positive for: normal inspection. Negative for: calf tenderness, full ROM, joint swelling, normal capillary refill, pedal edema, tenderness, pedal pulses present - Back Exam Back exam: NORMAL INSPECTION. absent: CVA tenderness (L), CVA tenderness (R), FULL ROM, muscle spasm, paraspinal tenderness, rash noted, tenderness, vertebral tenderness - Neurological Exam Neurological exam: Alert, CN II-XII Intact, Normal Gait, Oriented x3, Reflexes Normal - Psychiatric Exam Psychiatric exam: Normal Affect, Normal Mood - Skin Skin Exam: Dry, Intact, Normal Color, Warm Results - Vital Signs Recent Vital Signs: Last Vital Signs Temp 99.8 F H 09/04/17 17:09 Pulse 106 H 09/04/17 16:04 Resp 20 09/04/17 16:04 BP 101/61 09/04/17 16:04 Pulse Ox 94 L 09/04/17 16:04 - Labs Result Diagrams: 09/05/17 04:20 09/05/17 04:20 Labs: Laboratory Results - last 24 hr 09/03/17 09/04/17 09/04/17 22:26 05:00 05:00 WBC 15.9 H RBC 4.26 Hgb 11.3 L Hct 33.7 L MCV 79.1 L MCH 26.6 L MCHC 33.6 RDW 14.3 Plt Count 261 Sodium 137 Potassium 3.5 L Chloride 98 Carbon Dioxide 28 Anion Gap 15 BUN 24 H Creatinine 0.9 Est GFR ( Amer) > 60 Est GFR (Non-Af Amer) > 60 POC Glucose (mg/dL) 215 H Random Glucose 246 H Calcium 8.7 Total Bilirubin 0.8 AST 28 ALT 38 Alkaline Phosphatase 84 NT-Pro-B Natriuret Pep 533 Total Protein 6.9 Albumin 3.2 L Globulin 3.6 Albumin/Globulin Ratio 0.9 L Triglycerides Cholesterol LDL Cholesterol Direct HDL Cholesterol Thyroxine (T4) TSH 3rd Generation 09/04/17 09/04/17 09:30 16:28 WBC RBC Hgb Hct MCV MCH MCHC RDW Plt Count Sodium Potassium Chloride Carbon Dioxide Anion Gap BUN Creatinine Est GFR ( Amer) Est GFR (Non-Af Amer) POC Glucose (mg/dL) 245 H Random Glucose Calcium Total Bilirubin AST ALT Alkaline Phosphatase NT-Pro-B Natriuret Pep Total Protein Albumin Globulin Albumin/Globulin Ratio Triglycerides 166 H D Cholesterol 121 LDL Cholesterol Direct 60 HDL Cholesterol 18 L Thyroxine (T4) 6.66 TSH 3rd Generation 1.06 Assessment & Plan (1) Dizziness Status: Acute (2) Prerenal azotemia Status: Acute (3) Hx of pulmonary embolus Status: Acute (4) Cough Status: Acute (5) History of hypothyroidism Status: Acute - Assessment and Plan (Free Text) Plan: CHECK TFTS GIVE NS AT 75 CC/HR X 1-2 LITERS ABX ECHO RESULTS ABOVE CHECK LE DUPLEX DVT PROPHYLAXIS ASA REPLEAT LYTES HOLD LASIX FOR NOW
[2017-09-04] MEDS ORDERED: Sodium Chloride 0.9% 1,000 ML IV SCH (21:00)
[2017-09-05] MEDS: Insulin Regular 100 units/ml SC SCH ×5 (00:39→21:37)
[2017-09-05 05:42] LABS: HEMOGLOBIN 10.7 g/dL (12.0-16.0); MEAN CELL VOLUME 79.7 fl (81.0-99.0); MEAN CORPUSCULAR HEMOGLOBIN 26.4 pg (27.0-31.0); MEAN CORPUSCULAR HGB CONC 33.1 g/dL (33.0-37.0); RBC 4.06 Mil/uL (3.80-5.20); RED CELL DISTRIBUTION WIDTH 14.2 % (11.5-14.5); WHITE BLOOD COUNT 11.9 K/uL (4.8-10.8)
[2017-09-05 05:56] LABS: BLOOD UREA NITROGEN 22 mg/dl (7-17); CALCIUM 8.6 mg/dL (8.4-10.2); GFR AFRICAN-AMERICAN > 60; GFR NON-AFRICAN AMERICAN 55
[2017-09-05 06:26] LABS: T3 0.435 nmol/L (1.49-2.60)
[2017-09-05] MEDS: Levothyroxine 50 MCG TAB PO SCH (07:01)
[2017-09-05] MEDS: Albuterol-Ipratrop 3 mg / 0.5 (3 ml) UD INH SCH ×3 (07:50→19:31)
--- NOTE | 2017-09-05 08:14 | US ---
EXAM: US Duplex Bilateral Lower Extremity Veins CLINICAL HISTORY: 66 years old, female; Signs and symptoms; Other: H/o pe; Additional info: HX pe TECHNIQUE: Real-time duplex ultrasound scan of the bilateral lower extremity veins integrating B-mode two-dimensional vascular structure, Doppler spectral analysis, color flow Doppler imaging and compression. COMPARISON: No relevant prior studies available. FINDINGS: Right deep veins: Unremarkable. No DVT in the right common femoral, femoral, proximal deep femoral or popliteal veins. The veins demonstrate normal color flow, are normally compressible, with normal phasic flow and/or augmentation response. Right superficial veins: Unremarkable. No thrombus in the visualized right great saphenous vein. Left deep veins: Unremarkable. No DVT in the left common femoral, femoral, proximal deep femoral or popliteal veins. The veins demonstrate normal color flow, are normally compressible, with normal phasic flow and/or augmentation response. Left superficial veins: Unremarkable. No thrombus in the visualized left great saphenous vein. Soft tissues: No acute findings. No popliteal cyst. IMPRESSION: Normal bilateral lower extremity duplex venous ultrasound.
[2017-09-05] MEDS: Enoxaparin 40 mg Syringe SC SCH (08:33)
[2017-09-05] MEDS ORDERED: Potassium Chloride 20 mEq ER Tab PO ONE (09:30)
--- NOTE | 2017-09-05 09:53 | CP.PCM.PN ---
Subjective - Date & Time of Evaluation Date of Evaluation: 09/05/17 Time of Evaluation: 09:54 - Subjective Subjective: sob improved still has fever Objective - Vital Signs/Intake and Output Vital Signs (last 24 hours): Temp Pulse Resp BP Pulse Ox 101.7 F H 102 H 20 122/69 98 09/05/17 08:36 09/05/17 08:34 09/05/17 07:56 09/05/17 08:34 09/05/17 07:56 - Medications Medications: Current Medications Acetaminophen (Tylenol 325mg Tab) 650 mg PO Q4 PRN PRN Reason: fever 101and above Last Admin: 09/05/17 08:36 Dose: 650 mg Albuterol/Ipratropium (Duoneb 3 Mg/0.5 Mg (3 Ml) Ud) 3 ml INH RQ6 [facility] Last Admin: 09/05/17 07:50 Dose: 3 ml Amlodipine Besylate (Norvasc) 10 mg PO DAILY [facility] Last Admin: 09/05/17 08:34 Dose: 10 mg Aspirin (Ecotrin) 81 mg PO DAILY [facility] Last Admin: 09/05/17 08:31 Dose: 81 mg Dextrose (Dextrose 50% Inj) 0 ml IV STAT PRN; Protocol PRN Reason: Hypoglycemia Protocol Dextrose (Glutose 15) 0 gm PO ONCE PRN; Protocol PRN Reason: Hypoglycemia Protocol Enalapril Maleate (Vasotec) 5 mg PO DAILY [facility] Last Admin: 09/05/17 08:36 Dose: 5 mg Enoxaparin Sodium (Lovenox) 40 mg SC DAILY [facility] PRN Reason: Protocol Last Admin: 09/05/17 08:33 Dose: 40 mg Glipizide (Glucotrol) 10 mg PO BIDAC [facility] Last Admin: 09/04/17 17:06 Dose: 10 mg Glucagon (Glucagen Diagnostic Kit) 0 mg IM STAT PRN; Protocol PRN Reason: Hypoglycemia Protocol Azithromycin 500 mg/ Sodium (Chloride) 250 mls @ 250 mls/hr IVPB DAILY [facility] PRN Reason: Protocol Last Admin: 09/04/17 11:14 Dose: 250 mls/hr Ceftriaxone Sodium 1 gm/ (Sodium Chloride) 100 mls @ 100 mls/hr IVPB DAILY [facility] PRN Reason: Protocol Last Admin: 09/05/17 08:35 Dose: 100 mls/hr Sodium Chloride (Sodium Chloride 0.9%) 1,000 mls @ 75 mls/hr IV .[id number] [facility] Stop: 09/05/17 10:19 Last Admin: 09/04/17 22:23 Dose: 75 mls/hr Insulin Human Regular (Humulin R) 0 units SC ACHS [facility] PRN Reason: Protocol Last Admin: 09/05/17 06:51 Dose: Not Given Lactulose (Enulose) 20 gm PO DAILY PRN PRN Reason: Constipation Last Admin: 09/04/17 16:12 Dose: 20 gm Levothyroxine Sodium (Synthroid) 50 mcg PO DAILY@0630 [facility] Last Admin: 09/05/17 07:01 Dose: 50 mcg Metformin HCl (Glucophage) 1,000 mg PO BIDWM [facility] Last Admin: 09/05/17 08:31 Dose: 1,000 mg - Labs Labs: 09/05/17 04:20 09/05/17 04:20 PT 14.7 Seconds (9.8-13.1) H 09/03/17 15:10 INR 1.3 (0.9-1.2) H 09/03/17 15:10 APTT 27.3 Seconds (25.6-37.1) 09/03/17 15:10 - Constitutional Appears: No Acute Distress - Head Exam Head Exam: ATRAUMATIC, NORMAL INSPECTION, NORMOCEPHALIC - Eye Exam Eye Exam: EOMI, Normal appearance, PERRL Pupil Exam: NORMAL ACCOMODATION, PERRL - ENT Exam ENT Exam: Mucous Membranes Moist, Normal Exam - Neck Exam Neck Exam: Full ROM, Normal Inspection. absent: Lymphadenopathy - Respiratory Exam Respiratory Exam: Prolonged Expiratory Phase, Rales, NORMAL BREATHING PATTERN - Cardiovascular Exam Cardiovascular Exam: REGULAR RHYTHM, +S1, +S2. absent: Murmur - GI/Abdominal Exam GI & Abdominal Exam: Soft, Normal Bowel Sounds. absent: Tenderness - Rectal Exam Rectal Exam: NORMAL INSPECTION - Extremities Exam Extremities Exam: Full ROM, Normal Capillary Refill, Normal Inspection. absent : Joint Swelling, Pedal Edema - Back Exam Back Exam: NORMAL INSPECTION - Neurological Exam Neurological Exam: Alert, Awake, CN II-XII Intact, Normal Gait, Oriented x3 - Psychiatric Exam Psychiatric exam: Normal Affect, Normal Mood - Skin Skin Exam: Dry, Intact, Normal Color, Warm Assessment and Plan - Assessment and Plan (Free Text) Assessment: acute asthma--mild intermittent uri ?uti hypothyroidism htn dm with hyperglycemia Plan: obtain urine studies infectious dz consult for appropriate antibiotic rx
[2017-09-05] MEDS: Azithromycin 500 MG in Sodium Chloride 0.9% 250 ML IVPB SCH (10:18)
[2017-09-05 10:59] LABS: SQUAMOUS EPITHIAL 1 /hpf (0-5); URINE AMORPHOUS SEDIMENT RARE /ul (<OCC); URINE BACTERIA RARE (<OCC); URINE BILIRUBIN NEGATIVE (NEGATIVE); URINE BLOOD NEGATIVE (NEGATIVE); URINE CLARITY CLOUDY (Clear); URINE COLOR YELLOW (YELLOW); URINE GLUCOSE (UA) NEG (Normal); URINE LEUKOCYTE ESTERASE SMALL Leu/uL (Negative); URINE PROTEIN 30 mg/dL (NEGATIVE); URINE UROBILINOGEN 0.2-1.0 mg/dL (0.2-1.0)
--- NOTE | 2017-09-05 11:31 | CP.PCM.CON ---
History of Present Illness - History of Present Illness History of Present Illness: Infectious Disease Consultation Note- asked to see this patient at the request of to help with antibiotic management. HPI- Weston is a 66 year old female from [place] here visiting family with pmh of DM II, asthma, CVAHTN, PE, TIA who came to ED c/o mild nonproductive cough for few days along with feeling weak, dizzy and bodyaches. She denies any nausea or vomiting, denies any diarrhea, denies any abd. pain, denies any dysurea. she was started on abx for URI by pmd and states she feels better today. denies any chills but is noted to have fever. Review of Systems - Review of Systems Review of Systems: ROS- denies any fever or chills but is noted to have fevers here, + cough not productive, + bodyaches, + weakness and dizziness but dizziness has resolved now , denies any abd. pain, denies any diarrhea, denies any N/V, denies any dysurea. Past Patient History - Infectious Disease Hx of Infectious Diseases: None - Past Medical History & Family History Past Medical History?: Yes - Past Social History Alcohol: None Drugs: Denies Home Situation {Lives}: With Family - CARDIAC Hx Hypertension: Yes - PULMONARY Hx Asthma: Yes Hx Pulmonary Embolism: Yes - NEUROLOGICAL Hx Transient Ischemic Attacks (TIA): Yes - HEENT Hx HEENT Problems: No - RENAL Hx Chronic Kidney Disease: No - ENDOCRINE/METABOLIC Hx Endocrine Disorders: Yes Hx Diabetes Mellitus Type 2: Yes - HEMATOLOGICAL/ONCOLOGICAL Hx Blood Disorders: No - INTEGUMENTARY Hx Dermatological Problems: No - MUSCULOSKELETAL/RHEUMATOLOGICAL Hx Musculoskeletal Disorders: No Hx Falls: Yes - GASTROINTESTINAL Hx Gall Bladder Disease: Yes (gall bladder sx - removed 2013) - GENITOURINARY/GYNECOLOGICAL Hx Genitourinary Disorders: No - PSYCHIATRIC Hx Psychophysiologic Disorder: No Hx Substance Use: No - SURGICAL HISTORY Hx Cholecystectomy: Yes (3 years ago) - ANESTHESIA Hx Anesthesia: Yes Hx Anesthesia Reactions: No Hx Malignant Hyperthermia: No Meds Allergies/Adverse Reactions: Allergies Allergy/AdvReac Type Severity Reaction Status Date / Time FISH AdvReac SWELLING Verified 09/04/17 15:51 - Medications Medications: Current Medications Acetaminophen (Tylenol 325mg Tab) 650 mg PO Q4 PRN PRN Reason: fever 101and above Last Admin: 09/05/17 08:36 Dose: 650 mg Albuterol/Ipratropium (Duoneb 3 Mg/0.5 Mg (3 Ml) Ud) 3 ml INH RQ6 [facility] Last Admin: 09/05/17 07:50 Dose: 3 ml Amlodipine Besylate (Norvasc) 10 mg PO DAILY [facility] Last Admin: 09/05/17 08:34 Dose: 10 mg Aspirin (Ecotrin) 81 mg PO DAILY [facility] Last Admin: 09/05/17 08:31 Dose: 81 mg Dextrose (Dextrose 50% Inj) 0 ml IV STAT PRN; Protocol PRN Reason: Hypoglycemia Protocol Dextrose (Glutose 15) 0 gm PO ONCE PRN; Protocol PRN Reason: Hypoglycemia Protocol Enalapril Maleate (Vasotec) 5 mg PO DAILY [facility] Last Admin: 09/05/17 08:36 Dose: 5 mg Enoxaparin Sodium (Lovenox) 40 mg SC DAILY [facility] PRN Reason: Protocol Last Admin: 09/05/17 08:33 Dose: 40 mg Glipizide (Glucotrol) 10 mg PO BIDAC [facility] Last Admin: 09/05/17 10:20 Dose: 10 mg Glucagon (Glucagen Diagnostic Kit) 0 mg IM STAT PRN; Protocol PRN Reason: Hypoglycemia Protocol Azithromycin 500 mg/ Sodium (Chloride) 250 mls @ 250 mls/hr IVPB DAILY [facility] PRN Reason: Protocol Last Admin: 09/05/17 10:18 Dose: 250 mls/hr Ceftriaxone Sodium 1 gm/ (Sodium Chloride) 100 mls @ 100 mls/hr IVPB DAILY [facility] PRN Reason: Protocol Last Admin: 09/05/17 08:35 Dose: 100 mls/hr Insulin Human Regular (Humulin R) 0 units SC ACHS [facility] PRN Reason: Protocol Last Admin: 09/05/17 06:51 Dose: Not Given Lactulose (Enulose) 20 gm PO DAILY PRN PRN Reason: Constipation Last Admin: 09/04/17 16:12 Dose: 20 gm Levothyroxine Sodium (Synthroid) 50 mcg PO DAILY@0630 [facility] Last Admin: 09/05/17 07:01 Dose: 50 mcg Metformin HCl (Glucophage) 1,000 mg PO BIDWM [facility] Last Admin: 09/05/17 08:31 Dose: 1,000 mg Physical Exam - Constitutional Appears: Non-toxic, No Acute Distress - Head Exam Head Exam: ATRAUMATIC - Eye Exam Eye Exam: EOMI, PERRL - ENT Exam ENT Exam: Normal Oropharynx - Neck Exam Neck exam: Positive for: Full Rom - Respiratory Exam Respiratory Exam: NORMAL BREATHING PATTERN Additional comments: no wheezing minimal course cough good air entry b/l - Cardiovascular Exam Cardiovascular Exam: RRR, +S1, +S2 - GI/Abdominal Exam GI & Abdominal Exam: Normal Bowel Sounds, Soft Additional comments: NT, ND NO CVA tenderness B/L - Extremities Exam Extremities exam: Positive for: normal inspection - Neurological Exam Neurological exam: Alert, Oriented x3 Results - Vital Signs Recent Vital Signs: Last Vital Signs Temp 101.7 F H 09/05/17 08:36 Pulse 91 H 09/05/17 09:00 Resp 20 09/05/17 07:56 BP 122/69 09/05/17 08:34 Pulse Ox 98 09/05/17 07:56 - Labs Result Diagrams: 09/05/17 04:20 09/05/17 04:20 Labs: Laboratory Results - last 24 hr 09/04/17 09/04/17 09/04/17 06:26 09:30 10:37 WBC RBC Hgb Hct MCV MCH MCHC RDW Plt Count Sodium Potassium Chloride Carbon Dioxide Anion Gap BUN Creatinine Est GFR ( Amer) Est GFR (Non-Af Amer) POC Glucose (mg/dL) 205 H 317 H Random Glucose Calcium Magnesium Triglycerides 166 H D Cholesterol 121 LDL Cholesterol Direct 60 HDL Cholesterol 18 L Free T4 Thyroxine (T4) 6.66 Total T3 TSH 3rd Generation 1.06 Urine Color Urine Clarity Urine pH Ur Specific [place] Urine Protein Urine Glucose (UA) Urine Ketones Urine Blood Urine Nitrate Urine Bilirubin Urine Urobilinogen Ur Leukocyte Esterase Urine RBC (Auto) Urine Microscopic WBC Ur Squamous Epith Cells Amorphous Sediment Urine Bacteria 09/04/17 09/05/17 09/05/17 16:28 00:24 04:20 WBC 11.9 H RBC 4.06 Hgb 10.7 L Hct 32.3 L MCV 79.7 L MCH 26.4 L MCHC 33.1 RDW 14.2 Plt Count 273 Sodium Potassium Chloride Carbon Dioxide Anion Gap BUN Creatinine Est GFR ( Amer) Est GFR (Non-Af Amer) POC Glucose (mg/dL) 245 H 96 Random Glucose Calcium Magnesium Triglycerides Cholesterol LDL Cholesterol Direct HDL Cholesterol Free T4 Thyroxine (T4) Total T3 TSH 3rd Generation Urine Color Urine Clarity Urine pH Ur Specific [place] Urine Protein Urine Glucose (UA) Urine Ketones Urine Blood Urine Nitrate Urine Bilirubin Urine Urobilinogen Ur Leukocyte Esterase Urine RBC (Auto) Urine Microscopic WBC Ur Squamous Epith Cells Amorphous Sediment Urine Bacteria 09/05/17 09/05/17 09/05/17 04:20 04:20 05:47 WBC RBC Hgb Hct MCV MCH MCHC RDW Plt Count Sodium 138 Potassium 3.3 L Chloride 100 Carbon Dioxide 25 Anion Gap 16 BUN 22 H Creatinine 1.0 Est GFR ( Amer) > 60 Est GFR (Non-Af Amer) 55 POC Glucose (mg/dL) 72 Random Glucose 82 Calcium 8.6 Magnesium 1.6 Triglycerides Cholesterol LDL Cholesterol Direct HDL Cholesterol Free T4 1.18 Thyroxine (T4) Total T3 0.435 L TSH 3rd Generation 1.23 Urine Color Urine Clarity Urine pH Ur Specific [place] Urine Protein Urine Glucose (UA) Urine Ketones Urine Blood Urine Nitrate Urine Bilirubin Urine Urobilinogen Ur Leukocyte Esterase Urine RBC (Auto) Urine Microscopic WBC Ur Squamous Epith Cells Amorphous Sediment Urine Bacteria 09/05/17 09/05/17 10:27 11:24 WBC RBC Hgb Hct MCV MCH MCHC RDW Plt Count Sodium Potassium Chloride Carbon Dioxide Anion Gap BUN Creatinine Est GFR ( Amer) Est GFR (Non-Af Amer) POC Glucose (mg/dL) 138 H Random Glucose Calcium Magnesium Triglycerides Cholesterol LDL Cholesterol Direct HDL Cholesterol Free T4 Thyroxine (T4) Total T3 TSH 3rd Generation Urine Color Yellow Urine Clarity Cloudy Urine pH 5.0 Ur Specific [place] 1.016 Urine Protein 30 Urine Glucose (UA) Neg Urine Ketones Negative Urine Blood Negative Urine Nitrate Negative Urine Bilirubin Negative Urine Urobilinogen 0.2-1.0 Ur Leukocyte Esterase Small Urine RBC (Auto) 5 H Urine Microscopic WBC 19 H Ur Squamous Epith Cells 1 Amorphous Sediment Rare H Urine Bacteria Rare Laboratory Results - last 72 hr 09/03/17 09/03/17 09/03/17 15:00 15:10 15:10 WBC 16.8 H RBC 4.69 Hgb 12.6 Hct 37.1 MCV 79.0 L MCH 26.8 L MCHC 34.0 RDW 14.4 Plt Count 261 MPV 9.6 Neut % (Auto) 77.6 H Lymph % (Auto) 8.0 L [place] % (Auto) 13.6 H Eos % (Auto) 0.5 Baso % (Auto) 0.3 Neut # (Auto) 13.0 H Lymph # (Auto) 1.4 [place] # (Auto) 2.3 H Eos # (Auto) 0.1 Baso # (Auto) 0.1 Neutrophils % (Manual) 82 H Lymphocytes % (Manual) 8 L Monocytes % (Manual) 10 Platelet Estimate Normal Microcytosis (manual) Slight PT 14.7 H INR 1.3 H APTT 27.3 pO2 VBG pH VBG pCO2 VBG HCO3 VBG Total CO2 VBG O2 Sat (Calc) VBG Base Excess VBG Potassium Sodium 132 Chloride 94 L Glucose Lactate FiO2 Potassium 4.5 Carbon Dioxide 22 Anion Gap 21 H BUN 24 H Creatinine 0.8 Est GFR ( Amer) > 60 Est GFR (Non-Af Amer) > 60 POC Glucose (mg/dL) Random Glucose 353 H Calcium 9.0 Phosphorus 3.7 Magnesium 1.5 L Total Bilirubin 0.8 AST 42 H ALT 40 Alkaline Phosphatase 99 Troponin I < 0.0120 NT-Pro-B Natriuret Pep 354 Total Protein 7.7 Albumin 3.7 Globulin 4.0 H Albumin/Globulin Ratio 0.9 L Triglycerides Cholesterol LDL Cholesterol Direct HDL Cholesterol Free T4 Thyroxine (T4) Total T3 TSH 3rd Generation 2.41 Venous Blood Potassium Urine Color Urine Clarity Urine pH Ur Specific [place] Urine Protein Urine Glucose (UA) Urine Ketones Urine Blood Urine Nitrate Urine Bilirubin Urine Urobilinogen Ur Leukocyte Esterase Urine RBC (Auto) Urine Microscopic WBC Ur Squamous Epith Cells Amorphous Sediment Urine Bacteria Influenza Typ A,B (EIA) Blood Type Blood Type Confirm Antibody Screen BBK History Checked 09/03/17 09/03/17 09/03/17 15:10 15:10 15:22 WBC RBC Hgb Hct MCV MCH MCHC RDW Plt Count MPV Neut % (Auto) Lymph % (Auto) [place] % (Auto) Eos % (Auto) Baso % (Auto) Neut # (Auto) Lymph # (Auto) [place] # (Auto) Eos # (Auto) Baso # (Auto) Neutrophils % (Manual) Lymphocytes % (Manual) Monocytes % (Manual) Platelet Estimate Microcytosis (manual) PT INR APTT pO2 53 VBG pH 7.47 H VBG pCO2 38 L VBG HCO3 27.8 VBG Total CO2 28.9 H VBG O2 Sat (Calc) 90.6 H VBG Base Excess 3.9 H VBG Potassium 4.5 Sodium 130.0 L Chloride 96.0 L Glucose 383 H Lactate 1.9 FiO2 21.0 Potassium Carbon Dioxide Anion Gap BUN Creatinine Est GFR ( Amer) Est GFR (Non-Af Amer) POC Glucose (mg/dL) Random Glucose Calcium Phosphorus Magnesium Total Bilirubin AST ALT Alkaline Phosphatase Troponin I NT-Pro-B Natriuret Pep Total Protein Albumin Globulin Albumin/Globulin Ratio Triglycerides Cholesterol LDL Cholesterol Direct HDL Cholesterol Free T4 Thyroxine (T4) Total T3 TSH 3rd Generation Venous Blood Potassium 4.5 Urine Color Urine Clarity Urine pH Ur Specific [place] Urine Protein Urine Glucose (UA) Urine Ketones Urine Blood Urine Nitrate Urine Bilirubin Urine Urobilinogen Ur Leukocyte Esterase Urine RBC (Auto) Urine Microscopic WBC Ur Squamous Epith Cells Amorphous Sediment Urine Bacteria Influenza Typ A,B (EIA) Negative for flu a/b Blood Type O POSITIVE Blood Type Confirm Antibody Screen Negative BBK History Checked No verified bt 09/03/17 09/03/17 09/03/17 15:22 16:15 18:47 WBC RBC Hgb Hct MCV MCH MCHC RDW Plt Count MPV Neut % (Auto) Lymph % (Auto) [place] % (Auto) Eos % (Auto) Baso % (Auto) Neut # (Auto) Lymph # (Auto) [place] # (Auto) Eos # (Auto) Baso # (Auto) Neutrophils % (Manual) Lymphocytes % (Manual) Monocytes % (Manual) Platelet Estimate Microcytosis (manual) PT INR APTT pO2 VBG pH VBG pCO2 VBG HCO3 VBG Total CO2 VBG O2 Sat (Calc) VBG Base Excess VBG Potassium Sodium Chloride Glucose Lactate FiO2 Potassium Carbon Dioxide Anion Gap BUN Creatinine Est GFR ( Amer) Est GFR (Non-Af Amer) POC Glucose (mg/dL) 316 H 270 H Random Glucose Calcium Phosphorus Magnesium Total Bilirubin AST ALT Alkaline Phosphatase Troponin I NT-Pro-B Natriuret Pep Total Protein Albumin Globulin Albumin/Globulin Ratio Triglycerides Cholesterol LDL Cholesterol Direct HDL Cholesterol Free T4 Thyroxine (T4) Total T3 TSH 3rd Generation Venous Blood Potassium Urine Color Urine Clarity Urine pH Ur Specific [place] Urine Protein Urine Glucose (UA) Urine Ketones Urine Blood Urine Nitrate Urine Bilirubin Urine Urobilinogen Ur Leukocyte Esterase Urine RBC (Auto) Urine Microscopic WBC Ur Squamous Epith Cells Amorphous Sediment Urine Bacteria Influenza Typ A,B (EIA) Blood Type Blood Type Confirm O POSITIVE Antibody Screen BBK History Checked 09/03/17 09/04/17 09/04/17 22:26 05:00 05:00 WBC 15.9 H RBC 4.26 Hgb 11.3 L Hct 33.7 L MCV 79.1 L MCH 26.6 L MCHC 33.6 RDW 14.3 Plt Count 261 MPV Neut % (Auto) Lymph % (Auto) [place] % (Auto) Eos % (Auto) Baso % (Auto) Neut # (Auto) Lymph # (Auto) [place] # (Auto) Eos # (Auto) Baso # (Auto) Neutrophils % (Manual) Lymphocytes % (Manual) Monocytes % (Manual) Platelet Estimate Microcytosis (manual) PT INR APTT pO2 VBG pH VBG pCO2 VBG HCO3 VBG Total CO2 VBG O2 Sat (Calc) VBG Base Excess VBG Potassium Sodium 137 Chloride 98 Glucose Lactate FiO2 Potassium 3.5 L Carbon Dioxide 28 Anion Gap 15 BUN 24 H Creatinine 0.9 Est GFR ( Amer) > 60 Est GFR (Non-Af Amer) > 60 POC Glucose (mg/dL) 215 H Random Glucose 246 H Calcium 8.7 Phosphorus Magnesium Total Bilirubin 0.8 AST 28 ALT 38 Alkaline Phosphatase 84 Troponin I NT-Pro-B Natriuret Pep 533 Total Protein 6.9 Albumin 3.2 L Globulin 3.6 Albumin/Globulin Ratio 0.9 L Triglycerides Cholesterol LDL Cholesterol Direct HDL Cholesterol Free T4 Thyroxine (T4) Total T3 TSH 3rd Generation Venous Blood Potassium Urine Color Urine Clarity Urine pH Ur Specific [place] Urine Protein Urine Glucose (UA) Urine Ketones Urine Blood Urine Nitrate Urine Bilirubin Urine Urobilinogen Ur Leukocyte Esterase Urine RBC (Auto) Urine Microscopic WBC Ur Squamous Epith Cells Amorphous Sediment Urine Bacteria Influenza Typ A,B (EIA) Blood Type Blood Type Confirm Antibody Screen BBK History Checked 09/04/17 09/04/17 09/04/17 06:26 09:30 10:37 WBC RBC Hgb Hct MCV MCH MCHC RDW Plt Count MPV Neut % (Auto) Lymph % (Auto) [place] % (Auto) Eos % (Auto) Baso % (Auto) Neut # (Auto) Lymph # (Auto) [place] # (Auto) Eos # (Auto) Baso # (Auto) Neutrophils % (Manual) Lymphocytes % (Manual) Monocytes % (Manual) Platelet Estimate Microcytosis (manual) PT INR APTT pO2 VBG pH VBG pCO2 VBG HCO3 VBG Total CO2 VBG O2 Sat (Calc) VBG Base Excess VBG Potassium Sodium Chloride Glucose Lactate FiO2 Potassium Carbon Dioxide Anion Gap BUN Creatinine Est GFR ( Amer) Est GFR (Non-Af Amer) POC Glucose (mg/dL) 205 H 317 H Random Glucose Calcium Phosphorus Magnesium Total Bilirubin AST ALT Alkaline Phosphatase Troponin I NT-Pro-B Natriuret Pep Total Protein Albumin Globulin Albumin/Globulin Ratio Triglycerides 166 H D Cholesterol 121 LDL Cholesterol Direct 60 HDL Cholesterol 18 L Free T4 Thyroxine (T4) 6.66 Total T3 TSH 3rd Generation 1.06 Venous Blood Potassium Urine Color Urine Clarity Urine pH Ur Specific [place] Urine Protein Urine Glucose (UA) Urine Ketones Urine Blood Urine Nitrate Urine Bilirubin Urine Urobilinogen Ur Leukocyte Esterase Urine RBC (Auto) Urine Microscopic WBC Ur Squamous Epith Cells Amorphous Sediment Urine Bacteria Influenza Typ A,B (EIA) Blood Type Blood Type Confirm Antibody Screen BBK History Checked 09/04/17 09/05/17 09/05/17 16:28 00:24 04:20 WBC 11.9 H RBC 4.06 Hgb 10.7 L Hct 32.3 L MCV 79.7 L MCH 26.4 L MCHC 33.1 RDW 14.2 Plt Count 273 MPV Neut % (Auto) Lymph % (Auto) [place] % (Auto) Eos % (Auto) Baso % (Auto) Neut # (Auto) Lymph # (Auto) [place] # (Auto) Eos # (Auto) Baso # (Auto) Neutrophils % (Manual) Lymphocytes % (Manual) Monocytes % (Manual) Platelet Estimate Microcytosis (manual) PT INR APTT pO2 VBG pH VBG pCO2 VBG HCO3 VBG Total CO2 VBG O2 Sat (Calc) VBG Base Excess VBG Potassium Sodium Chloride Glucose Lactate FiO2 Potassium Carbon Dioxide Anion Gap BUN Creatinine Est GFR ( Amer) Est GFR (Non-Af Amer) POC Glucose (mg/dL) 245 H 96 Random Glucose Calcium Phosphorus Magnesium Total Bilirubin AST ALT Alkaline Phosphatase Troponin I NT-Pro-B Natriuret Pep Total Protein Albumin Globulin Albumin/Globulin Ratio Triglycerides Cholesterol LDL Cholesterol Direct HDL Cholesterol Free T4 Thyroxine (T4) Total T3 TSH 3rd Generation Venous Blood Potassium Urine Color Urine Clarity Urine pH Ur Specific [place] Urine Protein Urine Glucose (UA) Urine Ketones Urine Blood Urine Nitrate Urine Bilirubin Urine Urobilinogen Ur Leukocyte Esterase Urine RBC (Auto) Urine Microscopic WBC Ur Squamous Epith Cells Amorphous Sediment Urine Bacteria Influenza Typ A,B (EIA) Blood Type Blood Type Confirm Antibody Screen BBK History Checked 09/05/17 09/05/17 09/05/17 04:20 04:20 05:47 WBC RBC Hgb Hct MCV MCH MCHC RDW Plt Count MPV Neut % (Auto) Lymph % (Auto) [place] % (Auto) Eos % (Auto) Baso % (Auto) Neut # (Auto) Lymph # (Auto) [place] # (Auto) Eos # (Auto) Baso # (Auto) Neutrophils % (Manual) Lymphocytes % (Manual) Monocytes % (Manual) Platelet Estimate Microcytosis (manual) PT INR APTT pO2 VBG pH VBG pCO2 VBG HCO3 VBG Total CO2 VBG O2 Sat (Calc) VBG Base Excess VBG Potassium Sodium 138 Chloride 100 Glucose Lactate FiO2 Potassium 3.3 L Carbon Dioxide 25 Anion Gap 16 BUN 22 H Creatinine 1.0 Est GFR ( Amer) > 60 Est GFR (Non-Af Amer) 55 POC Glucose (mg/dL) 72 Random Glucose 82 Calcium 8.6 Phosphorus Magnesium 1.6 Total Bilirubin AST ALT Alkaline Phosphatase Troponin I NT-Pro-B Natriuret Pep Total Protein Albumin Globulin Albumin/Globulin Ratio Triglycerides Cholesterol LDL Cholesterol Direct HDL Cholesterol Free T4 1.18 Thyroxine (T4) Total T3 0.435 L TSH 3rd Generation 1.23 Venous Blood Potassium Urine Color Urine Clarity Urine pH Ur Specific [place] Urine Protein Urine Glucose (UA) Urine Ketones Urine Blood Urine Nitrate Urine Bilirubin Urine Urobilinogen Ur Leukocyte Esterase Urine RBC (Auto) Urine Microscopic WBC Ur Squamous Epith Cells Amorphous Sediment Urine Bacteria Influenza Typ A,B (EIA) Blood Type Blood Type Confirm Antibody Screen BBK History Checked 09/05/17 09/05/17 10:27 11:24 WBC RBC Hgb Hct MCV MCH MCHC RDW Plt Count MPV Neut % (Auto) Lymph % (Auto) [place] % (Auto) Eos % (Auto) Baso % (Auto) Neut # (Auto) Lymph # (Auto) [place] # (Auto) Eos # (Auto) Baso # (Auto) Neutrophils % (Manual) Lymphocytes % (Manual) Monocytes % (Manual) Platelet Estimate Microcytosis (manual) PT INR APTT pO2 VBG pH VBG pCO2 VBG HCO3 VBG Total CO2 VBG O2 Sat (Calc) VBG Base Excess VBG Potassium Sodium Chloride Glucose Lactate FiO2 Potassium Carbon Dioxide Anion Gap BUN Creatinine Est GFR ( Amer) Est GFR (Non-Af Amer) POC Glucose (mg/dL) 138 H Random Glucose Calcium Phosphorus Magnesium Total Bilirubin AST ALT Alkaline Phosphatase Troponin I NT-Pro-B Natriuret Pep Total Protein Albumin Globulin Albumin/Globulin Ratio Triglycerides Cholesterol LDL Cholesterol Direct HDL Cholesterol Free T4 Thyroxine (T4) Total T3 TSH 3rd Generation Venous Blood Potassium Urine Color Yellow Urine Clarity Cloudy Urine pH 5.0 Ur Specific [place] 1.016 Urine Protein 30 Urine Glucose (UA) Neg Urine Ketones Negative Urine Blood Negative Urine Nitrate Negative Urine Bilirubin Negative Urine Urobilinogen 0.2-1.0 Ur Leukocyte Esterase Small Urine RBC (Auto) 5 H Urine Microscopic WBC 19 H Ur Squamous Epith Cells 1 Amorphous Sediment Rare H Urine Bacteria Rare Influenza Typ A,B (EIA) Blood Type Blood Type Confirm Antibody Screen BBK History Checked Microbiology 09/03/17 15:00 Blood-Venous Blood Culture - Preliminary NO GROWTH AFTER 24 HOURS Accession No. : [id number] Patient Name / ID : OLIVIA PRUITT / [id number] Exam Date : 09/03/2017 17:21:15 ( Approved ) Study Comment : Sex / Age : F / 66Y Creator : Camelia Fernandez MD Dictator : Camelia Fernandez MD Electronic Lab Technician : Vice President Of Software Engineering : Camelia Fernandez MD Approver2 : Report Date : 09/03/2017 18:19:53 My Comment : PROCEDURE: CT Chest with contrast (Pulmonary Angiogram) HISTORY: Cough sob h/o PE COMPARISON: None available. TECHNIQUE: Axial computed tomography images were obtained of the chest in the pulmonary arterial phase of enhancement. Coronal and sagittal reformatted images were created and reviewed. Intravenous contrast dose: 90 mL Visipaque 320 Radiation dose: Total exam DLP = 414.42 mGy-cm. This CT exam was performed using one or more of the following dose reduction techniques: Automated exposure control, adjustment of the mA and/or kV according to patient size, and/or use of iterative reconstruction technique. FINDINGS: PULMONARY ARTERIES: There are no filling defects in the pulmonary arteries to suggest acute pulmonary embolism although evaluation is limited due to missed bolus. . AORTA: No acute findings. No thoracic aortic aneurysm. There is an apparent right subclavian artery. LUNGS: The lungs are well inflated and there is patchy ground-glass attenuation. No nodule, mass or pulmonary consolidation. PLEURAL SPACES: No effusion or pneuomothorax. HEART: Mild cardiomegaly and small pericardial effusion. LYMPH NODES: No pathologic lymphadenopathy. BONES, CHEST WALL: Diffuse bone demineralization and multilevel degenerative disc disease. No fracture or destructive lesion OTHER FINDINGS: Unremarkable. IMPRESSION: 1. Suboptimal examination due to missed bolus. Allowing for this, no large central pulmonary embolism. 2. Mild cardiomegaly and small pericardial effusion. 3. Mild ground-glass attenuation in the lungs is nonspecific and could be related to mild alveolar pulmonary edema or nonspecific inflammation. Accession No. : [id number] Patient Name / ID : OLIVIA PRUITT / [id number] Exam Date : 09/03/2017 14:58:22 ( Approved ) Study Comment : Sex / Age : F / 66Y Creator : Pedro Sainz MD Dictator : Pedro Sainz MD Electronic Lab Technician : Vice President Of Software Engineering : Pedro Sainz MD Approver2 : Report Date : 09/03/2017 15:48:19 My Comment : HISTORY: sob COMPARISON: 07/21/2016 FINDINGS: LUNGS: No active pulmonary disease. PLEURA: No significant pleural effusion identified, no pneumothorax apparent. CARDIOVASCULAR: Shortness OSSEOUS STRUCTURES: No significant abnormalities. VISUALIZED UPPER ABDOMEN: Normal. OTHER FINDINGS: None. IMPRESSION: No active disease. Of breath No radiographic findings to suggest acute or significant cardiovascular disease. No significant interval change compared to the prior examination(s). Assessment & Plan (1) Cough Status: Acute (2) Hx of pulmonary embolus Status: Acute - Assessment and Plan (Free Text) Assessment: A/P- 66 year old female with asthma, h/o PE, TIA, DM II admitted with cough, bodyaches, weakness . found to be ferbile and mild leukocytosis. cxr- no active disease as per report. UA- mildly positive LE dopplers - negative for DVT as per report leukocytosis has improved but still spikes temps. TTE- no mention of any vegetations. influenza- negative plan- check blood cx x 2. check urine cx. UA- neg for nitrate and small LE only. r/o viral conditions specially since she just returned from [place]. r/o chikungunya and dengue . check mycoplasma and urine legionella AG as well. advise to continue with zithromax , d/c ceftriaxone for now and plac [place] broader antibiotic such as zosyn pending cx results Thank you for allowing me to take part in the care of this patient.
[2017-09-05] MEDS: Piperacillin/Tazobact 3.375 GM in Sodium Chloride 0.9% 100 ML IVPB SCH ×2 (16:43→21:38)
--- NOTE | 2017-09-05 18:21 | CP.PCM.PN ---
Subjective - Date & Time of Evaluation Date of Evaluation: 09/05/17 Time of Evaluation: 18:19 - Subjective Subjective: PT WITHOUT FURTHER DIZZINESS. NO CP OR SOB. PT FEBRILE WITH UTI. Objective - Vital Signs/Intake and Output Vital Signs (last 24 hours): Temp Pulse Resp BP Pulse Ox 97.9 F 93 H 20 122/71 99 09/05/17 16:02 09/05/17 16:02 09/05/17 16:02 09/05/17 16:02 09/05/17 16:02 - Medications Medications: Current Medications Acetaminophen (Tylenol 325mg Tab) 650 mg PO Q4 PRN PRN Reason: fever 101and above Last Admin: 09/05/17 08:36 Dose: 650 mg Albuterol/Ipratropium (Duoneb 3 Mg/0.5 Mg (3 Ml) Ud) 3 ml INH RQ6 [facility] Last Admin: 09/05/17 13:43 Dose: 3 ml Amlodipine Besylate (Norvasc) 10 mg PO DAILY [facility] Last Admin: 09/05/17 08:34 Dose: 10 mg Aspirin (Ecotrin) 81 mg PO DAILY [facility] Last Admin: 09/05/17 08:31 Dose: 81 mg Dextrose (Dextrose 50% Inj) 0 ml IV STAT PRN; Protocol PRN Reason: Hypoglycemia Protocol Dextrose (Glutose 15) 0 gm PO ONCE PRN; Protocol PRN Reason: Hypoglycemia Protocol Enalapril Maleate (Vasotec) 5 mg PO DAILY [facility] Last Admin: 09/05/17 08:36 Dose: 5 mg Enoxaparin Sodium (Lovenox) 40 mg SC DAILY [facility] PRN Reason: Protocol Last Admin: 09/05/17 08:33 Dose: 40 mg Glipizide (Glucotrol) 10 mg PO BIDAC [facility] Last Admin: 09/05/17 16:45 Dose: 10 mg Glucagon (Glucagen Diagnostic Kit) 0 mg IM STAT PRN; Protocol PRN Reason: Hypoglycemia Protocol Azithromycin 500 mg/ Sodium (Chloride) 250 mls @ 250 mls/hr IVPB DAILY [facility] PRN Reason: Protocol Last Admin: 09/05/17 10:18 Dose: 250 mls/hr Piperacillin Sod/Tazobactam (Sod 3.375 gm/ Sodium Chloride) 100 mls @ 100 mls/ hr IVPB Q6 [facility] PRN Reason: Protocol Last Admin: 09/05/17 16:43 Dose: 100 mls/hr Insulin Human Regular (Humulin R) 0 units SC ACHS [facility] PRN Reason: Protocol Last Admin: 09/05/17 16:46 Dose: Not Given Lactulose (Enulose) 20 gm PO DAILY PRN PRN Reason: Constipation Last Admin: 09/04/17 16:12 Dose: 20 gm Levothyroxine Sodium (Synthroid) 50 mcg PO DAILY@0630 [facility] Last Admin: 09/05/17 07:01 Dose: 50 mcg Metformin HCl (Glucophage) 1,000 mg PO BIDWM [facility] Last Admin: 09/05/17 16:45 Dose: 1,000 mg - Labs Labs: 09/05/17 04:20 09/05/17 04:20 PT 14.7 Seconds (9.8-13.1) H 09/03/17 15:10 INR 1.3 (0.9-1.2) H 09/03/17 15:10 APTT 27.3 Seconds (25.6-37.1) 09/03/17 15:10 - Constitutional Appears: Well - Head Exam Head Exam: ATRAUMATIC, NORMAL INSPECTION, NORMOCEPHALIC - Eye Exam Eye Exam: EOMI, Normal appearance, PERRL. absent: Conjunctival injection, Nystagmus, Periorbital swelling, Periorbital tenderness, Scleral icterus Pupil Exam: NORMAL ACCOMODATION, PERRL - ENT Exam ENT Exam: Mucous Membranes Moist, Normal Exam. absent: Mucous Membranes Dry, Normal External Ear Exam, Normal Oropharynx, TM's Normal Bilaterally - Neck Exam Neck Exam: Full ROM, Normal Inspection. absent: Lymphadenopathy, Meningismus, Tenderness, Thyromegaly - Respiratory Exam Respiratory Exam: Clear to Ausculation Bilateral, NORMAL BREATHING PATTERN. absent: Accessory Muscle Use, Chest Wall Tenderness, Decreased Breath Sounds, Prolonged Expiratory Phase, Rales, Rhonchi, Wheezes, Respiratory Distress, Stridor - Cardiovascular Exam Cardiovascular Exam: REGULAR RHYTHM, +S1, +S2, Murmur. absent: Bradycardia, Tachycardia, Clicks, Diastolic murmur, Gallop, Irregular Rhythm, JVD, RRR, Rubs , +S4 - GI/Abdominal Exam GI & Abdominal Exam: Soft, Normal Bowel Sounds. absent: Bruit, Distended, Firm , Guarding, Rigid, Tenderness, Diminished Bowel Sounds, Hernia, Hyperactive Bowel Sounds, Hypoactive Bowel Sounds, Organomegaly, Pulsatile Mass, Rebound, Mass - Extremities Exam Extremities Exam: Full ROM, Normal Capillary Refill, Normal Inspection. absent : Joint Swelling, Pedal Edema - Back Exam Back Exam: NORMAL INSPECTION. absent: CVA tenderness (L), CVA tenderness (R), Full ROM, muscle spasm, paraspinal tenderness, rash noted, tenderness, vertebral tenderness - Neurological Exam Neurological Exam: Alert, Awake, CN II-XII Intact, Normal Gait, Oriented x3. absent: Abnormal Gait, Altered, Motor Sensory Deficit, Reflexes Normal - Psychiatric Exam Psychiatric exam: Normal Affect, Normal Mood. absent: Agitated, Anxious, Depressed, Flat Affect, Homicidal Ideation, Manic, Suicidal Ideation - Skin Skin Exam: Dry, Intact, Normal Color, Warm. absent: Abrasion, Cyanosis, Diaphoretic, Erythema, Mottled, Pallor, Pallor, Petechiae, Rash, Urticaria, Vesicles Assessment and Plan (1) Dizziness Status: Acute (2) Prerenal azotemia Status: Acute (3) Hx of pulmonary embolus Status: Acute (4) Cough Status: Acute (5) History of hypothyroidism Status: Acute - Assessment and Plan (Free Text) Plan: PT IS S/P 1 L NS. NO ARRYTHMIAS ON TELE. NO PE ON CTA. NO CM ON ECHO. WILL SIGN OFF. PLEASE RECALL IF NEEDED. CONSIDER MAINTENANCE IVF GIVEN FEVERS.
[2017-09-06] MEDS: Albuterol-Ipratrop 3 mg / 0.5 (3 ml) UD INH SCH ×4 (01:00→19:21)
[2017-09-06] MEDS: Piperacillin/Tazobact 3.375 GM in Sodium Chloride 0.9% 100 ML IVPB SCH ×4 (05:02→22:10)
[2017-09-06 05:49] LABS: HEMOGLOBIN 10.8 g/dL (12.0-16.0); MEAN CELL VOLUME 79.3 fl (81.0-99.0); MEAN CORPUSCULAR HEMOGLOBIN 26.4 pg (27.0-31.0); MEAN CORPUSCULAR HGB CONC 33.3 g/dL (33.0-37.0); RBC 4.1 Mil/uL (3.80-5.20); RED CELL DISTRIBUTION WIDTH 14.6 % (11.5-14.5); WHITE BLOOD COUNT 8.8 K/uL (4.8-10.8)
[2017-09-06 06:26] LABS: BLOOD UREA NITROGEN 14 mg/dl (7-17); CALCIUM 8.5 mg/dL (8.4-10.2); GFR AFRICAN-AMERICAN > 60; GFR NON-AFRICAN AMERICAN > 60
[2017-09-06] MEDS: Levothyroxine 50 MCG TAB PO SCH (06:30)
[2017-09-06] MEDS: Enoxaparin 40 mg Syringe SC SCH (08:27)
[2017-09-06] MEDS: Insulin Regular 100 units/ml SC SCH ×4 (08:27→22:23)
[2017-09-06] MEDS: Azithromycin 500 MG in Sodium Chloride 0.9% 250 ML IVPB SCH (08:41)
--- NOTE | 2017-09-06 08:51 | CP.PCM.PN ---
Subjective - Date & Time of Evaluation Date of Evaluation: 09/06/17 Time of Evaluation: 08:52 - Subjective Subjective: DIZZINESS RESOLVED LOW GRADE FEVER FEELS BETTER NO COUGH/SOB Objective - Vital Signs/Intake and Output Vital Signs (last 24 hours): Temp Pulse Resp BP Pulse Ox 101 F H 101 H 20 117/67 95 09/06/17 08:44 09/06/17 08:28 09/06/17 08:28 09/06/17 08:28 09/06/17 08:28 - Medications Medications: Current Medications Acetaminophen (Tylenol 325mg Tab) 650 mg PO Q4 PRN PRN Reason: fever 101and above Last Admin: 09/06/17 08:44 Dose: 650 mg Albuterol/Ipratropium (Duoneb 3 Mg/0.5 Mg (3 Ml) Ud) 3 ml INH RQ6 [facility] Last Admin: 09/06/17 08:02 Dose: 3 ml Amlodipine Besylate (Norvasc) 10 mg PO DAILY [facility] Last Admin: 09/06/17 08:28 Dose: 10 mg Aspirin (Ecotrin) 81 mg PO DAILY [facility] Last Admin: 09/06/17 08:25 Dose: 81 mg Dextrose (Dextrose 50% Inj) 0 ml IV STAT PRN; Protocol PRN Reason: Hypoglycemia Protocol Dextrose (Glutose 15) 0 gm PO ONCE PRN; Protocol PRN Reason: Hypoglycemia Protocol Enalapril Maleate (Vasotec) 5 mg PO DAILY [facility] Last Admin: 09/06/17 08:30 Dose: 5 mg Enoxaparin Sodium (Lovenox) 40 mg SC DAILY [facility] PRN Reason: Protocol Last Admin: 09/06/17 08:27 Dose: 40 mg Glipizide (Glucotrol) 10 mg PO BIDAC [facility] Last Admin: 09/06/17 08:26 Dose: 10 mg Glucagon (Glucagen Diagnostic Kit) 0 mg IM STAT PRN; Protocol PRN Reason: Hypoglycemia Protocol Azithromycin 500 mg/ Sodium (Chloride) 250 mls @ 250 mls/hr IVPB DAILY [facility] PRN Reason: Protocol Last Admin: 09/06/17 08:41 Dose: 250 mls/hr Piperacillin Sod/Tazobactam (Sod 3.375 gm/ Sodium Chloride) 100 mls @ 100 mls/ hr IVPB Q6 [facility] PRN Reason: Protocol Last Admin: 09/06/17 05:02 Dose: 100 mls/hr Insulin Human Regular (Humulin R) 0 units SC ACHS [facility] PRN Reason: Protocol Last Admin: 09/06/17 08:27 Dose: Not Given Lactulose (Enulose) 20 gm PO DAILY PRN PRN Reason: Constipation Last Admin: 09/04/17 16:12 Dose: 20 gm Levothyroxine Sodium (Synthroid) 50 mcg PO DAILY@0630 [facility] Last Admin: 09/06/17 06:30 Dose: 50 mcg Metformin HCl (Glucophage) 1,000 mg PO BIDWM [facility] Last Admin: 09/06/17 08:26 Dose: 1,000 mg - Labs Labs: 09/06/17 05:30 09/06/17 05:30 PT 14.7 Seconds (9.8-13.1) H 09/03/17 15:10 INR 1.3 (0.9-1.2) H 09/03/17 15:10 APTT 27.3 Seconds (25.6-37.1) 09/03/17 15:10 - Constitutional Appears: No Acute Distress - Head Exam Head Exam: ATRAUMATIC, NORMAL INSPECTION, NORMOCEPHALIC - Eye Exam Eye Exam: EOMI, Normal appearance, PERRL Pupil Exam: NORMAL ACCOMODATION, PERRL - ENT Exam ENT Exam: Mucous Membranes Moist, Normal Exam - Neck Exam Neck Exam: Full ROM, Normal Inspection. absent: Lymphadenopathy - Respiratory Exam Respiratory Exam: Clear to Ausculation Bilateral, NORMAL BREATHING PATTERN - Cardiovascular Exam Cardiovascular Exam: REGULAR RHYTHM, +S1, +S2. absent: Murmur - GI/Abdominal Exam GI & Abdominal Exam: Soft, Normal Bowel Sounds. absent: Tenderness - Rectal Exam Rectal Exam: NORMAL INSPECTION - Extremities Exam Extremities Exam: Full ROM, Normal Capillary Refill, Normal Inspection. absent : Joint Swelling, Pedal Edema - Back Exam Back Exam: NORMAL INSPECTION - Neurological Exam Neurological Exam: Alert, Awake, CN II-XII Intact, Normal Gait, Oriented x3 - Psychiatric Exam Psychiatric exam: Normal Affect, Normal Mood - Skin Skin Exam: Dry, Intact, Normal Color, Warm Assessment and Plan - Assessment and Plan (Free Text) Assessment: DIZZINESS RESOLVED ASTHMA-IMPROVED FEVER--?ETIOLOGY--?VIRAL SYNDROME HX OF PE HYPOTHYROIDISM HTN PRERENAL AZOTEMIA Plan: CONTINUE CURRENT RX WILL D/C ONCE AFEBRILE X 24 HRS AND ALL CULTURES NEGATIVE
--- NOTE | 2017-09-06 18:05 | CP.PCM.PN ---
Subjective - Date & Time of Evaluation Date of Evaluation: 09/06/17 Time of Evaluation: 14:00 - Subjective Subjective: ID Note- Pt. seen and examined today. states afeels betetr. had low garde fever though this am. denies any sob . cough is less. denies any dizziness today. Objective - Vital Signs/Intake and Output Vital Signs (last 24 hours): Temp Pulse Resp BP Pulse Ox 97.3 F L 67 18 123/78 97 09/06/17 15:27 09/06/17 15:27 09/06/17 15:27 09/06/17 15:27 09/06/17 15:27 - Medications Medications: Current Medications Acetaminophen (Tylenol 325mg Tab) 650 mg PO Q4 PRN PRN Reason: fever 101and above Last Admin: 09/06/17 08:44 Dose: 650 mg Albuterol/Ipratropium (Duoneb 3 Mg/0.5 Mg (3 Ml) Ud) 3 ml INH RQ6 [facility] Last Admin: 09/06/17 13:00 Dose: 3 ml Amlodipine Besylate (Norvasc) 10 mg PO DAILY [facility] Last Admin: 09/06/17 08:28 Dose: 10 mg Aspirin (Ecotrin) 81 mg PO DAILY [facility] Last Admin: 09/06/17 08:25 Dose: 81 mg Dextrose (Dextrose 50% Inj) 0 ml IV STAT PRN; Protocol PRN Reason: Hypoglycemia Protocol Dextrose (Glutose 15) 0 gm PO ONCE PRN; Protocol PRN Reason: Hypoglycemia Protocol Enalapril Maleate (Vasotec) 5 mg PO DAILY [facility] Last Admin: 09/06/17 08:30 Dose: 5 mg Enoxaparin Sodium (Lovenox) 40 mg SC DAILY [facility] PRN Reason: Protocol Last Admin: 09/06/17 08:27 Dose: 40 mg Glipizide (Glucotrol) 10 mg PO BIDAC [facility] Last Admin: 09/06/17 16:30 Dose: 10 mg Glucagon (Glucagen Diagnostic Kit) 0 mg IM STAT PRN; Protocol PRN Reason: Hypoglycemia Protocol Azithromycin 500 mg/ Sodium (Chloride) 250 mls @ 250 mls/hr IVPB DAILY [facility] PRN Reason: Protocol Last Admin: 09/06/17 08:41 Dose: 250 mls/hr Piperacillin Sod/Tazobactam (Sod 3.375 gm/ Sodium Chloride) 100 mls @ 100 mls/ hr IVPB Q6 [facility] PRN Reason: Protocol Last Admin: 09/06/17 16:34 Dose: 100 mls/hr Insulin Human Regular (Humulin R) 0 units SC ACHS [facility] PRN Reason: Protocol Last Admin: 09/06/17 16:31 Dose: Not Given Lactulose (Enulose) 20 gm PO DAILY PRN PRN Reason: Constipation Last Admin: 09/04/17 16:12 Dose: 20 gm Levothyroxine Sodium (Synthroid) 50 mcg PO DAILY@0630 [facility] Last Admin: 09/06/17 06:30 Dose: 50 mcg Metformin HCl (Glucophage) 1,000 mg PO BIDWM [facility] Last Admin: 09/06/17 16:30 Dose: 1,000 mg - Labs Labs: - Additional Findings Additional findings: - Constitutional Appears: Non-toxic, No Acute Distress - Head Exam Head Exam: ATRAUMATIC - Eye Exam Eye Exam: EOMI, PERRL - ENT Exam ENT Exam: Normal Oropharynx - Neck Exam Neck exam: Positive for: Full Rom - Respiratory Exam Respiratory Exam: NORMAL BREATHING PATTERN Additional comments: no wheezing minimal course cough good air entry b/l - Cardiovascular Exam Cardiovascular Exam: RRR, +S1, +S2 - GI/Abdominal Exam GI & Abdominal Exam: Normal Bowel Sounds, Soft Additional comments: NT, ND NO CVA tenderness B/L - Extremities Exam Extremities exam: Positive for: normal inspection - Neurological Exam Neurological exam: Alert, Oriented x 3 Laboratory Results - last 72 hr 09/03/17 09/03/17 09/03/17 15:10 16:15 18:47 WBC RBC Hgb Hct MCV MCH MCHC RDW Plt Count Sodium Potassium Chloride Carbon Dioxide Anion Gap BUN Creatinine Est GFR ( Amer) Est GFR (Non-Af Amer) POC Glucose (mg/dL) 270 H Random Glucose Calcium Magnesium Total Bilirubin AST ALT Alkaline Phosphatase NT-Pro-B Natriuret Pep Total Protein Albumin Globulin Albumin/Globulin Ratio Triglycerides Cholesterol LDL Cholesterol Direct HDL Cholesterol Free T4 Thyroxine (T4) Total T3 TSH 3rd Generation Urine Color Urine Clarity Urine pH Ur Specific Spring Urine Protein Urine Glucose (UA) Urine Ketones Urine Blood Urine Nitrate Urine Bilirubin Urine Urobilinogen Ur Leukocyte Esterase Urine RBC (Auto) Urine Microscopic WBC Ur Squamous Epith Cells Amorphous Sediment Urine Bacteria Ur L.pneumophila Ag Blood Type O POSITIVE Blood Type Confirm O POSITIVE Antibody Screen Negative 09/03/17 09/04/17 09/04/17 22:26 05:00 05:00 WBC 15.9 H RBC 4.26 Hgb 11.3 L Hct 33.7 L MCV 79.1 L MCH 26.6 L MCHC 33.6 RDW 14.3 Plt Count 261 Sodium 137 Potassium 3.5 L Chloride 98 Carbon Dioxide 28 Anion Gap 15 BUN 24 H Creatinine 0.9 Est GFR ( Amer) > 60 Est GFR (Non-Af Amer) > 60 POC Glucose (mg/dL) 215 H Random Glucose 246 H Calcium 8.7 Magnesium Total Bilirubin 0.8 AST 28 ALT 38 Alkaline Phosphatase 84 NT-Pro-B Natriuret Pep 533 Total Protein 6.9 Albumin 3.2 L Globulin 3.6 Albumin/Globulin Ratio 0.9 L Triglycerides Cholesterol LDL Cholesterol Direct HDL Cholesterol Free T4 Thyroxine (T4) Total T3 TSH 3rd Generation Urine Color Urine Clarity Urine pH Ur Specific Spring Urine Protein Urine Glucose (UA) Urine Ketones Urine Blood Urine Nitrate Urine Bilirubin Urine Urobilinogen Ur Leukocyte Esterase Urine RBC (Auto) Urine Microscopic WBC Ur Squamous Epith Cells Amorphous Sediment Urine Bacteria Ur L.pneumophila Ag Blood Type Blood Type Confirm Antibody Screen 09/04/17 09/04/17 09/04/17 06:26 09:30 10:37 WBC RBC Hgb Hct MCV MCH MCHC RDW Plt Count Sodium Potassium Chloride Carbon Dioxide Anion Gap BUN Creatinine Est GFR ( Amer) Est GFR (Non-Af Amer) POC Glucose (mg/dL) 205 H 317 H Random Glucose Calcium Magnesium Total Bilirubin AST ALT Alkaline Phosphatase NT-Pro-B Natriuret Pep Total Protein Albumin Globulin Albumin/Globulin Ratio Triglycerides 166 H D Cholesterol 121 LDL Cholesterol Direct 60 HDL Cholesterol 18 L Free T4 Thyroxine (T4) 6.66 Total T3 TSH 3rd Generation 1.06 Urine Color Urine Clarity Urine pH Ur Specific Spring Urine Protein Urine Glucose (UA) Urine Ketones Urine Blood Urine Nitrate Urine Bilirubin Urine Urobilinogen Ur Leukocyte Esterase Urine RBC (Auto) Urine Microscopic WBC Ur Squamous Epith Cells Amorphous Sediment Urine Bacteria Ur L.pneumophila Ag Blood Type Blood Type Confirm Antibody Screen 09/04/17 09/05/17 09/05/17 16:28 00:24 04:20 WBC 11.9 H RBC 4.06 Hgb 10.7 L Hct 32.3 L MCV 79.7 L MCH 26.4 L MCHC 33.1 RDW 14.2 Plt Count 273 Sodium Potassium Chloride Carbon Dioxide Anion Gap BUN Creatinine Est GFR ( Amer) Est GFR (Non-Af Amer) POC Glucose (mg/dL) 245 H 96 Random Glucose Calcium Magnesium Total Bilirubin AST ALT Alkaline Phosphatase NT-Pro-B Natriuret Pep Total Protein Albumin Globulin Albumin/Globulin Ratio Triglycerides Cholesterol LDL Cholesterol Direct HDL Cholesterol Free T4 Thyroxine (T4) Total T3 TSH 3rd Generation Urine Color Urine Clarity Urine pH Ur Specific Spring Urine Protein Urine Glucose (UA) Urine Ketones Urine Blood Urine Nitrate Urine Bilirubin Urine Urobilinogen Ur Leukocyte Esterase Urine RBC (Auto) Urine Microscopic WBC Ur Squamous Epith Cells Amorphous Sediment Urine Bacteria Ur L.pneumophila Ag Blood Type Blood Type Confirm Antibody Screen 09/05/17 09/05/17 09/05/17 04:20 04:20 05:47 WBC RBC Hgb Hct MCV MCH MCHC RDW Plt Count Sodium 138 Potassium 3.3 L Chloride 100 Carbon Dioxide 25 Anion Gap 16 BUN 22 H Creatinine 1.0 Est GFR ( Amer) > 60 Est GFR (Non-Af Amer) 55 POC Glucose (mg/dL) 72 Random Glucose 82 Calcium 8.6 Magnesium 1.6 Total Bilirubin AST ALT Alkaline Phosphatase NT-Pro-B Natriuret Pep Total Protein Albumin Globulin Albumin/Globulin Ratio Triglycerides Cholesterol LDL Cholesterol Direct HDL Cholesterol Free T4 1.18 Thyroxine (T4) Total T3 0.435 L TSH 3rd Generation 1.23 Urine Color Urine Clarity Urine pH Ur Specific Spring Urine Protein Urine Glucose (UA) Urine Ketones Urine Blood Urine Nitrate Urine Bilirubin Urine Urobilinogen Ur Leukocyte Esterase Urine RBC (Auto) Urine Microscopic WBC Ur Squamous Epith Cells Amorphous Sediment Urine Bacteria Ur L.pneumophila Ag Blood Type Blood Type Confirm Antibody Screen 09/05/17 09/05/17 09/05/17 10:27 11:00 11:24 WBC RBC Hgb Hct MCV MCH MCHC RDW Plt Count Sodium Potassium Chloride Carbon Dioxide Anion Gap BUN Creatinine Est GFR ( Amer) Est GFR (Non-Af Amer) POC Glucose (mg/dL) 138 H Random Glucose Calcium Magnesium Total Bilirubin AST ALT Alkaline Phosphatase NT-Pro-B Natriuret Pep Total Protein Albumin Globulin Albumin/Globulin Ratio Triglycerides Cholesterol LDL Cholesterol Direct HDL Cholesterol Free T4 Thyroxine (T4) Total T3 TSH 3rd Generation Urine Color Yellow Urine Clarity Cloudy Urine pH 5.0 Ur Specific Spring 1.016 Urine Protein 30 Urine Glucose (UA) Neg Urine Ketones Negative Urine Blood Negative Urine Nitrate Negative Urine Bilirubin Negative Urine Urobilinogen 0.2-1.0 Ur Leukocyte Esterase Small Urine RBC (Auto) 5 H Urine Microscopic WBC 19 H Ur Squamous Epith Cells 1 Amorphous Sediment Rare H Urine Bacteria Rare Ur L.pneumophila Ag Negative Blood Type Blood Type Confirm Antibody Screen 09/05/17 09/05/17 09/06/17 16:07 21:14 05:24 WBC RBC Hgb Hct MCV MCH MCHC RDW Plt Count Sodium Potassium Chloride Carbon Dioxide Anion Gap BUN Creatinine Est GFR ( Amer) Est GFR (Non-Af Amer) POC Glucose (mg/dL) 116 H 119 H 75 Random Glucose Calcium Magnesium Total Bilirubin AST ALT Alkaline Phosphatase NT-Pro-B Natriuret Pep Total Protein Albumin Globulin Albumin/Globulin Ratio Triglycerides Cholesterol LDL Cholesterol Direct HDL Cholesterol Free T4 Thyroxine (T4) Total T3 TSH 3rd Generation Urine Color Urine Clarity Urine pH Ur Specific Spring Urine Protein Urine Glucose (UA) Urine Ketones Urine Blood Urine Nitrate Urine Bilirubin Urine Urobilinogen Ur Leukocyte Esterase Urine RBC (Auto) Urine Microscopic WBC Ur Squamous Epith Cells Amorphous Sediment Urine Bacteria Ur L.pneumophila Ag Blood Type Blood Type Confirm Antibody Screen 09/06/17 09/06/17 09/06/17 05:30 05:30 07:11 WBC 8.8 RBC 4.10 Hgb 10.8 L Hct 32.5 L MCV 79.3 L MCH 26.4 L MCHC 33.3 RDW 14.6 H Plt Count 303 Sodium 139 Potassium 4.2 Chloride 101 Carbon Dioxide 28 Anion Gap 14 BUN 14 Creatinine 0.7 Est GFR ( Amer) > 60 Est GFR (Non-Af Amer) > 60 POC Glucose (mg/dL) 94 Random Glucose 76 Calcium 8.5 Magnesium Total Bilirubin AST ALT Alkaline Phosphatase NT-Pro-B Natriuret Pep Total Protein Albumin Globulin Albumin/Globulin Ratio Triglycerides Cholesterol LDL Cholesterol Direct HDL Cholesterol Free T4 Thyroxine (T4) Total T3 TSH 3rd Generation Urine Color Urine Clarity Urine pH Ur Specific Spring Urine Protein Urine Glucose (UA) Urine Ketones Urine Blood Urine Nitrate Urine Bilirubin Urine Urobilinogen Ur Leukocyte Esterase Urine RBC (Auto) Urine Microscopic WBC Ur Squamous Epith Cells Amorphous Sediment Urine Bacteria Ur L.pneumophila Ag Blood Type Blood Type Confirm Antibody Screen 09/06/17 11:05 WBC RBC Hgb Hct MCV MCH MCHC RDW Plt Count Sodium Potassium Chloride Carbon Dioxide Anion Gap BUN Creatinine Est GFR ( Amer) Est GFR (Non-Af Amer) POC Glucose (mg/dL) 126 H Random Glucose Calcium Magnesium Total Bilirubin AST ALT Alkaline Phosphatase NT-Pro-B Natriuret Pep Total Protein Albumin Globulin Albumin/Globulin Ratio Triglycerides Cholesterol LDL Cholesterol Direct HDL Cholesterol Free T4 Thyroxine (T4) Total T3 TSH 3rd Generation Urine Color Urine Clarity Urine pH Ur Specific Spring Urine Protein Urine Glucose (UA) Urine Ketones Urine Blood Urine Nitrate Urine Bilirubin Urine Urobilinogen Ur Leukocyte Esterase Urine RBC (Auto) Urine Microscopic WBC Ur Squamous Epith Cells Amorphous Sediment Urine Bacteria Ur L.pneumophila Ag Blood Type Blood Type Confirm Antibody Screen Microbiology 09/05/17 15:48 Blood-Venous Blood Culture - Preliminary NO GROWTH AFTER 24 HOURS 09/05/17 15:38 Blood-Venous Blood Culture - Preliminary NO GROWTH AFTER 24 HOURS 09/05/17 10:27 Urine Urine Culture - Final No Growth (<1,000 CFU/ML) 09/03/17 15:00 Blood-Venous Blood Culture - Preliminary NO GROWTH AFTER 48 HOURS Assessment and Plan (1) Cough Status: Acute (2) Hx of pulmonary embolus Status: Acute - Assessment and Plan (Free Text) Assessment: A/P- 66 year old female with asthma, h/o PE, TIA, DM II admitted with cough, bodyaches, weakness . found to be ferbile this am . leukocytosis has resolved. cxr- no active disease as per report. UA- mildly positive LE dopplers - negative for DVT as per report TTE- no mention of any vegetations. influenza- negative blood cx- neg x 3 urine cx- negative urine legionella GA- negative plan- clinically better . fevers most likely viral vs inflammatory. r/o chikungunya and dengue . advise to continue with zithromax , and zosyn empirically for now day #2. if all cx remain neg by tomm. d/c Iv abx.
[2017-09-07] MEDS: Albuterol-Ipratrop 3 mg / 0.5 (3 ml) UD INH SCH ×4 (01:00→19:35)
[2017-09-07] MEDS: Piperacillin/Tazobact 3.375 GM in Sodium Chloride 0.9% 100 ML IVPB SCH ×2 (03:40→09:14)
[2017-09-07] MEDS: Levothyroxine 50 MCG TAB PO SCH (06:20)
[2017-09-07] MEDS: Insulin Regular 100 units/ml SC SCH ×4 (09:08→21:56)
[2017-09-07] MEDS: Enoxaparin 40 mg Syringe SC SCH (09:09)
[2017-09-07] MEDS: Azithromycin 500 MG in Sodium Chloride 0.9% 250 ML IVPB SCH ×2 (09:10→10:00)
--- NOTE | 2017-09-07 15:48 | CP.PCM.PN ---
Subjective - Date & Time of Evaluation Date of Evaluation: 09/07/17 Time of Evaluation: 15:48 - Subjective Subjective: FEELS BETTER NO APPARENT DISTRESS AFEBRILE Objective - Vital Signs/Intake and Output Vital Signs (last 24 hours): Temp Pulse Resp BP Pulse Ox 98.3 F 92 H 20 138/75 99 09/07/17 15:39 09/07/17 15:39 09/07/17 15:39 09/07/17 15:39 09/07/17 15:39 - Medications Medications: Current Medications Acetaminophen (Tylenol 325mg Tab) 650 mg PO Q4 PRN PRN Reason: fever 101and above Last Admin: 09/06/17 08:44 Dose: 650 mg Albuterol/Ipratropium (Duoneb 3 Mg/0.5 Mg (3 Ml) Ud) 3 ml INH RQ6 [facility] Last Admin: 09/07/17 13:23 Dose: 3 ml Amlodipine Besylate (Norvasc) 10 mg PO DAILY [facility] Last Admin: 09/07/17 09:09 Dose: 10 mg Aspirin (Ecotrin) 81 mg PO DAILY [facility] Last Admin: 09/07/17 09:07 Dose: 81 mg Dextrose (Dextrose 50% Inj) 0 ml IV STAT PRN; Protocol PRN Reason: Hypoglycemia Protocol Dextrose (Glutose 15) 0 gm PO ONCE PRN; Protocol PRN Reason: Hypoglycemia Protocol Enalapril Maleate (Vasotec) 5 mg PO DAILY [facility] Last Admin: 09/07/17 09:10 Dose: 5 mg Enoxaparin Sodium (Lovenox) 40 mg SC DAILY [facility] PRN Reason: Protocol Glipizide (Glucotrol) 10 mg PO BIDAC [facility] Last Admin: 09/07/17 09:08 Dose: 10 mg Glucagon (Glucagen Diagnostic Kit) 0 mg IM STAT PRN; Protocol PRN Reason: Hypoglycemia Protocol Piperacillin Sod/Tazobactam (Sod 3.375 gm/ Sodium Chloride) 100 mls @ 100 mls/ hr IVPB Q6 [facility] PRN Reason: Protocol Last Admin: 09/07/17 09:14 Dose: 100 mls/hr Azithromycin 500 mg/ Sodium (Chloride) 250 mls @ 250 mls/hr IVPB DAILY [facility] PRN Reason: Protocol Last Admin: 09/07/17 10:00 Dose: Not Given Insulin Human Regular (Humulin R) 0 units SC ACHS [facility] PRN Reason: Protocol Last Admin: 09/07/17 12:53 Dose: 2 units Lactulose (Enulose) 20 gm PO DAILY PRN PRN Reason: Constipation Last Admin: 09/04/17 16:12 Dose: 20 gm Levothyroxine Sodium (Synthroid) 50 mcg PO DAILY@0630 [facility] Last Admin: 09/07/17 06:20 Dose: 50 mcg Metformin HCl (Glucophage) 1,000 mg PO BIDWM [facility] Last Admin: 09/07/17 09:08 Dose: 1,000 mg - Labs Labs: 09/06/17 05:30 09/06/17 05:30 PT 14.7 Seconds (9.8-13.1) H 09/03/17 15:10 INR 1.3 (0.9-1.2) H 09/03/17 15:10 APTT 27.3 Seconds (25.6-37.1) 09/03/17 15:10 - Constitutional Appears: No Acute Distress - Head Exam Head Exam: ATRAUMATIC, NORMAL INSPECTION, NORMOCEPHALIC - Eye Exam Eye Exam: EOMI, Normal appearance, PERRL Pupil Exam: NORMAL ACCOMODATION, PERRL - ENT Exam ENT Exam: Mucous Membranes Moist, Normal Exam - Neck Exam Neck Exam: Full ROM, Normal Inspection. absent: Lymphadenopathy - Respiratory Exam Respiratory Exam: Clear to Ausculation Bilateral, NORMAL BREATHING PATTERN - Cardiovascular Exam Cardiovascular Exam: REGULAR RHYTHM, +S1, +S2. absent: Murmur - GI/Abdominal Exam GI & Abdominal Exam: Soft, Normal Bowel Sounds. absent: Tenderness - Rectal Exam Rectal Exam: NORMAL INSPECTION - Extremities Exam Extremities Exam: Full ROM, Normal Capillary Refill, Normal Inspection. absent : Joint Swelling, Pedal Edema - Back Exam Back Exam: NORMAL INSPECTION - Neurological Exam Neurological Exam: Alert, Awake, CN II-XII Intact, Normal Gait, Oriented x3 - Psychiatric Exam Psychiatric exam: Normal Affect, Normal Mood - Skin Skin Exam: Dry, Intact, Normal Color, Warm Assessment and Plan - Assessment and Plan (Free Text) Assessment: FEVER-PROBABLY VIRAL HTN-STABLE NO RECURRENCE OF NEAR SYNCOPE Plan: CONTINUE PRESENT RX D/C IN AM IF STABLE
--- NOTE | 2017-09-07 17:47 | CP.PCM.PN ---
Subjective - Date & Time of Evaluation Date of Evaluation: 09/07/17 Time of Evaluation: 14:00 - Subjective Subjective: Id Note- pt. clinically improved. no new events overnight. has remained afebrile all day today. all cx - negative Objective - Vital Signs/Intake and Output Vital Signs (last 24 hours): Temp Pulse Resp BP Pulse Ox 98.3 F 92 H 20 138/75 99 09/07/17 15:39 09/07/17 15:39 09/07/17 15:39 09/07/17 15:39 09/07/17 15:39 - Medications Medications: Current Medications Acetaminophen (Tylenol 325mg Tab) 650 mg PO Q4 PRN PRN Reason: fever 101and above Last Admin: 09/06/17 08:44 Dose: 650 mg Albuterol/Ipratropium (Duoneb 3 Mg/0.5 Mg (3 Ml) Ud) 3 ml INH RQ6 [facility] Last Admin: 09/07/17 13:23 Dose: 3 ml Amlodipine Besylate (Norvasc) 10 mg PO DAILY [facility] Last Admin: 09/07/17 09:09 Dose: 10 mg Aspirin (Ecotrin) 81 mg PO DAILY [facility] Last Admin: 09/07/17 09:07 Dose: 81 mg Dextrose (Dextrose 50% Inj) 0 ml IV STAT PRN; Protocol PRN Reason: Hypoglycemia Protocol Dextrose (Glutose 15) 0 gm PO ONCE PRN; Protocol PRN Reason: Hypoglycemia Protocol Enalapril Maleate (Vasotec) 5 mg PO DAILY [facility] Last Admin: 09/07/17 09:10 Dose: 5 mg Enoxaparin Sodium (Lovenox) 40 mg SC DAILY [facility] PRN Reason: Protocol Glipizide (Glucotrol) 10 mg PO BIDAC [facility] Last Admin: 09/07/17 09:08 Dose: 10 mg Glucagon (Glucagen Diagnostic Kit) 0 mg IM STAT PRN; Protocol PRN Reason: Hypoglycemia Protocol Azithromycin 500 mg/ Sodium (Chloride) 250 mls @ 250 mls/hr IVPB DAILY [facility] PRN Reason: Protocol Last Admin: 09/07/17 10:00 Dose: Not Given Insulin Human Regular (Humulin R) 0 units SC ACHS [facility] PRN Reason: Protocol Last Admin: 09/07/17 12:53 Dose: 2 units Lactulose (Enulose) 20 gm PO DAILY PRN PRN Reason: Constipation Last Admin: 09/04/17 16:12 Dose: 20 gm Levothyroxine Sodium (Synthroid) 50 mcg PO DAILY@0630 [facility] Last Admin: 09/07/17 06:20 Dose: 50 mcg Metformin HCl (Glucophage) 1,000 mg PO BIDWM [facility] Last Admin: 09/07/17 09:08 Dose: 1,000 mg - Labs Labs: - Additional Findings Additional findings: - Constitutional Appears: Non-toxic, No Acute Distress - Head Exam Head Exam: ATRAUMATIC - Eye Exam Eye Exam: EOMI, PERRL - ENT Exam ENT Exam: Normal Oropharynx - Neck Exam Neck exam: Positive for: Full Rom - Respiratory Exam Respiratory Exam: NORMAL BREATHING PATTERN Additional comments: no wheezing good air entry b/l - Cardiovascular Exam Cardiovascular Exam: RRR, +S1, +S2 - GI/Abdominal Exam GI & Abdominal Exam: Normal Bowel Sounds, Soft Additional comments: NT, ND NO CVA tenderness B/L - Extremities Exam Extremities exam: Positive for: normal inspection - Neurological Exam Neurological exam: Alert, Oriented x 3 Laboratory Results - last 72 hr 09/04/17 09/04/17 09/05/17 06:26 10:37 00:24 WBC RBC Hgb Hct MCV MCH MCHC RDW Plt Count Sodium Potassium Chloride Carbon Dioxide Anion Gap BUN Creatinine Est GFR ( Amer) Est GFR (Non-Af Amer) POC Glucose (mg/dL) 205 H 317 H 96 Random Glucose Calcium Magnesium Free T4 Total T3 TSH 3rd Generation Urine Color Urine Clarity Urine pH Ur Specific [place] Urine Protein Urine Glucose (UA) Urine Ketones Urine Blood Urine Nitrate Urine Bilirubin Urine Urobilinogen Ur Leukocyte Esterase Urine RBC (Auto) Urine Microscopic WBC Ur Squamous Epith Cells Amorphous Sediment Urine Bacteria Ur L.pneumophila Ag Mycoplasma pneumon IgG Mycoplasma pneumon IgM 09/05/17 09/05/17 09/05/17 04:20 04:20 04:20 WBC 11.9 H RBC 4.06 Hgb 10.7 L Hct 32.3 L MCV 79.7 L MCH 26.4 L MCHC 33.1 RDW 14.2 Plt Count 273 Sodium 138 Potassium 3.3 L Chloride 100 Carbon Dioxide 25 Anion Gap 16 BUN 22 H Creatinine 1.0 Est GFR ( Amer) > 60 Est GFR (Non-Af Amer) 55 POC Glucose (mg/dL) Random Glucose 82 Calcium 8.6 Magnesium 1.6 Free T4 1.18 Total T3 0.435 L TSH 3rd Generation 1.23 Urine Color Urine Clarity Urine pH Ur Specific [place] Urine Protein Urine Glucose (UA) Urine Ketones Urine Blood Urine Nitrate Urine Bilirubin Urine Urobilinogen Ur Leukocyte Esterase Urine RBC (Auto) Urine Microscopic WBC Ur Squamous Epith Cells Amorphous Sediment Urine Bacteria Ur L.pneumophila Ag Mycoplasma pneumon IgG Mycoplasma pneumon IgM 09/05/17 09/05/17 09/05/17 05:47 10:27 11:00 WBC RBC Hgb Hct MCV MCH MCHC RDW Plt Count Sodium Potassium Chloride Carbon Dioxide Anion Gap BUN Creatinine Est GFR ( Amer) Est GFR (Non-Af Amer) POC Glucose (mg/dL) 72 Random Glucose Calcium Magnesium Free T4 Total T3 TSH 3rd Generation Urine Color Yellow Urine Clarity Cloudy Urine pH 5.0 Ur Specific [place] 1.016 Urine Protein 30 Urine Glucose (UA) Neg Urine Ketones Negative Urine Blood Negative Urine Nitrate Negative Urine Bilirubin Negative Urine Urobilinogen 0.2-1.0 Ur Leukocyte Esterase Small Urine RBC (Auto) 5 H Urine Microscopic WBC 19 H Ur Squamous Epith Cells 1 Amorphous Sediment Rare H Urine Bacteria Rare Ur L.pneumophila Ag Negative Mycoplasma pneumon IgG Mycoplasma pneumon IgM 09/05/17 09/05/17 09/05/17 11:24 15:48 16:07 WBC RBC Hgb Hct MCV MCH MCHC RDW Plt Count Sodium Potassium Chloride Carbon Dioxide Anion Gap BUN Creatinine Est GFR ( Amer) Est GFR (Non-Af Amer) POC Glucose (mg/dL) 138 H 116 H Random Glucose Calcium Magnesium Free T4 Total T3 TSH 3rd Generation Urine Color Urine Clarity Urine pH Ur Specific [place] Urine Protein Urine Glucose (UA) Urine Ketones Urine Blood Urine Nitrate Urine Bilirubin Urine Urobilinogen Ur Leukocyte Esterase Urine RBC (Auto) Urine Microscopic WBC Ur Squamous Epith Cells Amorphous Sediment Urine Bacteria Ur L.pneumophila Ag Mycoplasma pneumon IgG 2.49 H Mycoplasma pneumon IgM 22 09/05/17 09/06/17 09/06/17 21:14 05:24 05:30 WBC 8.8 RBC 4.10 Hgb 10.8 L Hct 32.5 L MCV 79.3 L MCH 26.4 L MCHC 33.3 RDW 14.6 H Plt Count 303 Sodium Potassium Chloride Carbon Dioxide Anion Gap BUN Creatinine Est GFR ( Amer) Est GFR (Non-Af Amer) POC Glucose (mg/dL) 119 H 75 Random Glucose Calcium Magnesium Free T4 Total T3 TSH 3rd Generation Urine Color Urine Clarity Urine pH Ur Specific [place] Urine Protein Urine Glucose (UA) Urine Ketones Urine Blood Urine Nitrate Urine Bilirubin Urine Urobilinogen Ur Leukocyte Esterase Urine RBC (Auto) Urine Microscopic WBC Ur Squamous Epith Cells Amorphous Sediment Urine Bacteria Ur L.pneumophila Ag Mycoplasma pneumon IgG Mycoplasma pneumon IgM 09/06/17 09/06/17 09/06/17 05:30 07:11 11:05 WBC RBC Hgb Hct MCV MCH MCHC RDW Plt Count Sodium 139 Potassium 4.2 Chloride 101 Carbon Dioxide 28 Anion Gap 14 BUN 14 Creatinine 0.7 Est GFR ( Amer) > 60 Est GFR (Non-Af Amer) > 60 POC Glucose (mg/dL) 94 126 H Random Glucose 76 Calcium 8.5 Magnesium Free T4 Total T3 TSH 3rd Generation Urine Color Urine Clarity Urine pH Ur Specific [place] Urine Protein Urine Glucose (UA) Urine Ketones Urine Blood Urine Nitrate Urine Bilirubin Urine Urobilinogen Ur Leukocyte Esterase Urine RBC (Auto) Urine Microscopic WBC Ur Squamous Epith Cells Amorphous Sediment Urine Bacteria Ur L.pneumophila Ag Mycoplasma pneumon IgG Mycoplasma pneumon IgM 09/06/17 09/06/17 09/06/17 15:49 18:10 21:29 WBC RBC Hgb Hct MCV MCH MCHC RDW Plt Count Sodium Potassium Chloride Carbon Dioxide Anion Gap BUN Creatinine Est GFR ( Amer) Est GFR (Non-Af Amer) POC Glucose (mg/dL) 123 H 143 H Random Glucose Calcium Magnesium Free T4 Total T3 TSH 3rd Generation Urine Color Urine Clarity Urine pH Ur Specific [place] Urine Protein Urine Glucose (UA) Urine Ketones Urine Blood Urine Nitrate Urine Bilirubin Urine Urobilinogen Ur Leukocyte Esterase Urine RBC (Auto) Urine Microscopic WBC Ur Squamous Epith Cells Amorphous Sediment Urine Bacteria Ur L.pneumophila Ag Negative Mycoplasma pneumon IgG Mycoplasma pneumon IgM 09/07/17 09/07/17 09/07/17 05:30 11:06 15:52 WBC RBC Hgb Hct MCV MCH MCHC RDW Plt Count Sodium Potassium Chloride Carbon Dioxide Anion Gap BUN Creatinine Est GFR ( Amer) Est GFR (Non-Af Amer) POC Glucose (mg/dL) 105 209 H 145 H Random Glucose Calcium Magnesium Free T4 Total T3 TSH 3rd Generation Urine Color Urine Clarity Urine pH Ur Specific [place] Urine Protein Urine Glucose (UA) Urine Ketones Urine Blood Urine Nitrate Urine Bilirubin Urine Urobilinogen Ur Leukocyte Esterase Urine RBC (Auto) Urine Microscopic WBC Ur Squamous Epith Cells Amorphous Sediment Urine Bacteria Ur L.pneumophila Ag Mycoplasma pneumon IgG Mycoplasma pneumon IgM Microbiology 09/05/17 15:48 Blood-Venous Blood Culture - Preliminary NO GROWTH AFTER 48 HOURS 09/05/17 15:38 Blood-Venous Blood Culture - Preliminary NO GROWTH AFTER 48 HOURS 09/03/17 15:00 Blood-Venous Blood Culture - Preliminary NO GROWTH AFTER 3 DAYS 09/05/17 10:27 Urine Urine Culture - Final No Growth (<1,000 CFU/ML) Assessment and Plan (1) Cough Status: Acute (2) Hx of pulmonary embolus Status: Acute - Assessment and Plan (Free Text) Assessment: A/P- 66 year old female with asthma, h/o PE, TIA, DM II admitted with cough, bodyaches, weakness . clinically improved. afebrile past 24 hours. leukocytosis has resolved. cxr- no active disease as per report. UA- mildly positive LE dopplers - negative for DVT as per report TTE- no mention of any vegetations. influenza- negative blood cx- neg x 3 urine cx- negative urine legionella GA- negative plan- clinically better . fevers most likely viral vs inflammatory. completed 3 days of zithromax and zosyn. all cx remain negative and pt. is afebrile and normal wbc . d/c antibiotics today. can be d/c from ID standpoint. f/u with her PMD . d/w .
[2017-09-08] MEDS: Albuterol-Ipratrop 3 mg / 0.5 (3 ml) UD INH SCH ×2 (01:00→07:15)
[2017-09-08] MEDS: Levothyroxine 50 MCG TAB PO SCH (06:16)
[2017-09-08] MEDS: Insulin Regular 100 units/ml SC SCH ×2 (06:56→12:47)
[2017-09-08 08:09] VITALS: RESP 18
[2017-09-08] MEDS ORDERED: Enoxaparin 40 mg Syringe SC SCH (09:00)
[2017-09-08] MEDS: Azithromycin 500 MG in Sodium Chloride 0.9% 250 ML IVPB SCH (09:35)
--- NOTE | 2017-09-08 10:40 | CP.PCM.DIS ---
Provider - Provider Date of Admission: 09/03/17 18:48 Attending physician: Kiko Herndon MD Time Spent in preparation of Discharge (in minutes): 35 Diagnosis - Discharge Diagnosis (1) History of hypothyroidism Status: Acute (2) Hx of pulmonary embolus Status: Acute (3) Diabetes 1.5, managed as type 2 Status: Acute (4) Hypothyroidism Status: Acute (5) Hypertension Status: Acute (6) Fever Status: Acute (7) Viral syndrome Status: Acute (8) Cough Status: Acute (9) Dizziness Status: Acute (10) Prerenal azotemia Status: Acute Hospital Course - Lab Results Lab Results: Micro Results 09/03/17 15:00 Blood-Venous Blood Culture - Preliminary NO GROWTH AFTER 4 DAYS 09/05/17 15:48 Blood-Venous Blood Culture - Preliminary NO GROWTH AFTER 48 HOURS 09/05/17 15:38 Blood-Venous Blood Culture - Preliminary NO GROWTH AFTER 48 HOURS 09/05/17 10:27 Urine Urine Culture - Final No Growth (<1,000 CFU/ML) Most Recent Lab Values WBC 8.8 K/uL (4.8-10.8) 09/06/17 05:30 RBC 4.10 Mil/uL (3.80-5.20) 09/06/17 05:30 Hgb 10.8 g/dL (12.0-16.0) L 09/06/17 05:30 Hct 32.5 % (34.0-47.0) L 09/06/17 05:30 MCV 79.3 fl (81.0-99.0) L 09/06/17 05:30 MCH 26.4 pg (27.0-31.0) L 09/06/17 05:30 MCHC 33.3 g/dL (33.0-37.0) 09/06/17 05:30 RDW 14.6 % (11.5-14.5) H 09/06/17 05:30 Plt Count 303 K/uL (130-400) 09/06/17 05:30 MPV 9.6 fl (7.2-11.7) 09/03/17 15:00 Neut % (Auto) 77.6 % (50.0-75.0) H 09/03/17 15:00 Lymph % (Auto) 8.0 % (20.0-40.0) L 09/03/17 15:00 [place] % (Auto) 13.6 % (0.0-10.0) H 09/03/17 15:00 Eos % (Auto) 0.5 % (0.0-4.0) 09/03/17 15:00 Baso % (Auto) 0.3 % (0.0-2.0) 09/03/17 15:00 Neut # (Auto) 13.0 K/uL (1.8-7.0) H 09/03/17 15:00 Lymph # (Auto) 1.4 K/uL (1.0-4.3) 09/03/17 15:00 [place] # (Auto) 2.3 K/uL (0.0-0.8) H 09/03/17 15:00 Eos # (Auto) 0.1 K/uL (0.0-0.7) 09/03/17 15:00 Baso # (Auto) 0.1 K/uL (0.0-0.2) 09/03/17 15:00 Neutrophils % (Manual) 82 % (42-75) H 09/03/17 15:00 Lymphocytes % (Manual) 8 % (20-50) L 09/03/17 15:00 Monocytes % (Manual) 10 % (0-10) 09/03/17 15:00 Platelet Estimate Normal (NORMAL) 09/03/17 15:00 Microcytosis (manual) Slight 09/03/17 15:00 PT 14.7 Seconds (9.8-13.1) H 09/03/17 15:10 INR 1.3 (0.9-1.2) H 09/03/17 15:10 APTT 27.3 Seconds (25.6-37.1) 09/03/17 15:10 pO2 53 mm/Hg (30-55) 09/03/17 15:10 VBG pH 7.47 (7.32-7.43) H 09/03/17 15:10 VBG pCO2 38 mmHg (40-60) L 09/03/17 15:10 VBG HCO3 27.8 mmol/L 09/03/17 15:10 VBG Total CO2 28.9 mmol/L (22-28) H 09/03/17 15:10 VBG O2 Sat (Calc) 90.6 % (40-65) H 09/03/17 15:10 VBG Base Excess 3.9 mmol/L (0.0-2.0) H 09/03/17 15:10 VBG Potassium 4.5 mmol/L (3.6-5.2) 09/03/17 15:10 Sodium 130.0 mmol/L (132-148) L 09/03/17 15:10 Chloride 96.0 mmol/L (98-107) L 09/03/17 15:10 Glucose 383 mg/dL (65-105) H 09/03/17 15:10 Lactate 1.9 mmol/L (0.7-2.1) 09/03/17 15:10 FiO2 21.0 % 09/03/17 15:10 Sodium 139 mmol/l (132-148) 09/06/17 05:30 Potassium 4.2 MMOL/L (3.6-5.0) 09/06/17 05:30 Chloride 101 mmol/L (98-107) 09/06/17 05:30 Carbon Dioxide 28 mmol/L (22-30) 09/06/17 05:30 Anion Gap 14 (10-20) 09/06/17 05:30 BUN 14 mg/dl (7-17) 09/06/17 05:30 Creatinine 0.7 mg/dl (0.7-1.2) 09/06/17 05:30 Est GFR ( Amer) > 60 09/06/17 05:30 Est GFR (Non-Af Amer) > 60 09/06/17 05:30 POC Glucose (mg/dL) 112 mg/dL (65-110) H 09/08/17 05:16 Random Glucose 76 mg/dL (65-105) 09/06/17 05:30 Calcium 8.5 mg/dL (8.4-10.2) 09/06/17 05:30 Phosphorus 3.7 mg/dl (2.5-4.5) 09/03/17 15:10 Magnesium 1.6 MG/DL (1.6-2.3) 09/05/17 04:20 Total Bilirubin 0.8 mg/dl (0.2-1.3) 09/04/17 05:00 AST 28 U/L (14-36) 09/04/17 05:00 ALT 38 U/L (9-52) 09/04/17 05:00 Alkaline Phosphatase 84 U/L (38-126) 09/04/17 05:00 Troponin I < 0.0120 ng/mL (0.00-0.120) 09/03/17 15:10 NT-Pro-B Natriuret Pep 533 pg/ml (0-900) 09/04/17 05:00 Total Protein 6.9 G/DL (6.3-8.2) 09/04/17 05:00 Albumin 3.2 g/dL (3.5-5.0) L 09/04/17 05:00 Globulin 3.6 gm/dL (2.2-3.9) 09/04/17 05:00 Albumin/Globulin Ratio 0.9 (1.0-2.1) L 09/04/17 05:00 Triglycerides 166 mg/DL (0-149) H D 09/04/17 09:30 Cholesterol 121 mg/dL (0-199) 09/04/17 09:30 LDL Cholesterol Direct 60 mg/dL (0-129) 09/04/17 09:30 HDL Cholesterol 18 MG/DL (30-70) L 09/04/17 09:30 Free T4 1.18 ng/dL (0.78-2.19) 09/05/17 04:20 Thyroxine (T4) 6.66 ug/dl (5.5-11.0) 09/04/17 09:30 Total T3 0.435 nmol/L (1.49-2.60) L 09/05/17 04:20 TSH 3rd Generation 1.23 mIU/ML (0.46-4.68) 09/05/17 04:20 Venous Blood Potassium 4.5 mmol/L (3.6-5.2) 09/03/17 15:10 Urine Color Yellow (YELLOW) 09/05/17 10:27 Urine Clarity Cloudy (Clear) 09/05/17 10:27 Urine pH 5.0 (5.0-8.0) 09/05/17 10:27 Ur Specific [place] 1.016 (1.003-1.030) 09/05/17 10:27 Urine Protein 30 mg/dL (NEGATIVE) 09/05/17 10:27 Urine Glucose (UA) Neg mg/dL (Normal) 09/05/17 10:27 Urine Ketones Negative mg/dL (NEGATIVE) 09/05/17 10:27 Urine Blood Negative (NEGATIVE) 09/05/17 10:27 Urine Nitrate Negative (NEGATIVE) 09/05/17 10:27 Urine Bilirubin Negative (NEGATIVE) 09/05/17 10:27 Urine Urobilinogen 0.2-1.0 mg/dL (0.2-1.0) 09/05/17 10:27 Ur Leukocyte Esterase Small [place]/uL (Negative) 09/05/17 10:27 Urine RBC (Auto) 5 /hpf (0-3) H 09/05/17 10:27 Urine Microscopic WBC 19 /hpf (0-5) H 09/05/17 10:27 Ur Squamous Epith Cells 1 /hpf (0-5) 09/05/17 10:27 Amorphous Sediment Rare /ul (<OCC) H 09/05/17 10:27 Urine Bacteria Rare (<OCC) 09/05/17 10:27 Influenza Typ A,B (EIA) Negative for flu a/b (NEGATIVE) 09/03/17 15:22 Ur L.pneumophila Ag Negative (NEGATIVE) 09/06/17 18:10 Mycoplasma pneumon IgG 2.49 (<=0.90) H 09/05/17 15:48 Mycoplasma pneumon IgM 22 U/mL (<770) 09/05/17 15:48 Blood Type O POSITIVE 09/03/17 15:10 Blood Type Confirm O POSITIVE 09/03/17 16:15 Antibody Screen Negative 09/03/17 15:10 BBK History Checked No verified bt 09/03/17 15:10 - Hospital Course Hospital Course: CLINICALLY IMPROVED FEVER RESOLVED Discharge Exam - Head Exam Head Exam: ATRAUMATIC, NORMAL INSPECTION, NORMOCEPHALIC - Eye Exam Eye Exam: EOMI, Normal appearance, PERRL Pupil Exam: NORMAL ACCOMODATION, PERRL - GI/Abdominal Exam GI & Abdominal Exam: Normal Bowel Sounds - Rectal Exam Rectal Exam: NORMAL INSPECTION - Neurological Exam Neurological exam: Alert, CN II-XII Intact, Normal Gait, Oriented x3, Reflexes Normal - Psychiatric Exam Psychiatric exam: Normal Affect, Normal Mood - Skin Skin Exam: Dry, Intact, Normal Color, Warm Discharge Plan - Follow Up Plan Condition: FAIR Disposition: HOME/ ROUTINE Patient education suggested?: Yes Additional Instructions: DISCHARGE TODAY ON NO ANTIBIOTICE FOLLOW UP WITH PMD Referrals: Kiko Herndon MD [Staff Provider] -
[2017-09-08 12:24] VITALS: BP 126/78; PULSE 86; TEMP 97.7; O2SAT 96
== END 2017-09-08 13:32 | disposition home or self-care (01) | DRG 202 ==
LOC: H.ER 14:25 → H.ERHOLD 18:48 → H.TEL 20:55
PROVIDERS: ADMIT Internal Medicine Pulmonary Disease; ATTEND Internal Medicine Pulmonary Disease
DX: J45.21 Mild intermittent asthma with (acute) exacerbation (principal); I31.3 Pericardial effusion (noninflammatory); N39.0 Urinary tract infection, site not specified; Z86.73 Personal history of transient ischemic attack (TIA), and cerebral infarction without residual deficits; Z86.711 Personal history of pulmonary embolism; I10 Essential (primary) hypertension; E78.5 Hyperlipidemia, unspecified; Z90.49 Acquired absence of other specified parts of digestive tract; E11.65 Type 2 diabetes mellitus with hyperglycemia; E03.9 Hypothyroidism, unspecified; D72.829 Elevated white blood cell count, unspecified; B34.9 Viral infection, unspecified; J06.9 Acute upper respiratory infection, unspecified; K59.00 Constipation, unspecified; I51.7 Cardiomegaly; Z82.49 Family history of ischemic heart disease and other diseases of the circulatory system